=== PATIENT | male | born 1930 | race Caucasian/White ===

== ENCOUNTER 2017-02-01 15:46 | Emergency (ER) | payer MEDICARE, BC ==
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
[2017-02-01 17:58] VITALS: BP 130/91; PULSE 92; O2SAT 96
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
== END 2017-02-01 17:59 | disposition home or self-care (01) ==
LOC: ED 15:46
DX: M25.562 Pain in left knee (principal); V48.5XXA Car driver injured in noncollision transport accident in traffic accident, initial encounter; E78.00 Pure hypercholesterolemia, unspecified; I10 Essential (primary) hypertension; Z79.899 Other long term (current) drug therapy
CPT/HCPCS: 72170; 73564; 99283; L1830

== ENCOUNTER 2018-06-19 11:25 | Inpatient (IN) | payer MEDICARE, BC ==
[2018-06-19] MEDS ORDERED: Ventolin Hfa MDI IH PRN (16:07)
[2018-06-19] MEDS ORDERED: TYLENOL 325 MG PO PRN (16:07)
[2018-06-19] MEDS: Miralax Powder 17GM PACKET PO SCH (17:09)
[2018-06-19] MEDS: KEPPRA 500 MG PO SCH (21:46)
[2018-06-19] MEDS: ELIQUIS 2.5 MG TABLET PO SCH (21:46)
[2018-06-19] MEDS: Zocor 10MG PO SCH (21:47)
[2018-06-19] MEDS ORDERED: NON-FORMULARY ITEM (Simvastatin 40 Mg [Zocor 40 Mg] 40 MG) PO SCH (22:00)
[2018-06-19] MEDS ORDERED: NON-FORMULARY ITEM (Apixaban*** [Eliquis 5 Mg Tablet***] 5 MG) PO SCH (22:00)
[2018-06-20] MEDS: PROVENTIL COMMON CANISTER IH PRN ×2 (08:14→16:05)
[2018-06-20] MEDS: Miralax Powder 17GM PACKET PO SCH ×2 (09:45→17:00)
[2018-06-20] MEDS: Cardizem CD 240 MG PO SCH (09:46)
[2018-06-20] MEDS: ELIQUIS 2.5 MG TABLET PO SCH ×2 (09:46→21:41)
[2018-06-20] MEDS: Flomax 0.4 MG PO SCH (09:46)
[2018-06-20] MEDS: Protonix 40MG Tablet PO SCH (09:46)
[2018-06-20] MEDS: KEPPRA 500 MG PO SCH ×2 (09:46→21:41)
[2018-06-20] MEDS: Lanoxin 0.125MG TABLET PO SCH (09:47)
[2018-06-20] MEDS ORDERED: NON-FORMULARY ITEM (Omeprazole 20 Mg [Prilosec 20 Mg] 20 MG) PO SCH (10:00)
[2018-06-20] MEDS ORDERED: Aplisol ID SCH (10:00)
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
[2018-06-20] MEDS ORDERED: Dulcolax 10 MG SUPP PR PRN (17:40)
[2018-06-20] MEDS: Colace 100 MG PO PRN (17:52)
[2018-06-20] MEDS: Zocor 10MG PO SCH (21:41)
[2018-06-21] MEDS: ELIQUIS 2.5 MG TABLET PO SCH ×2 (10:21→21:49)
[2018-06-21] MEDS: KEPPRA 500 MG PO SCH ×2 (10:21→21:49)
[2018-06-21] MEDS: Lanoxin 0.125MG TABLET PO SCH (10:21)
[2018-06-21] MEDS: Flomax 0.4 MG PO SCH (10:21)
[2018-06-21] MEDS: Protonix 40MG Tablet PO SCH (10:21)
[2018-06-21] MEDS: Cardizem CD 240 MG PO SCH (10:22)
[2018-06-21] MEDS: Miralax Powder 17GM PACKET PO SCH ×2 (10:26→18:00)
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
[2018-06-21] MEDS: Zocor 10MG PO SCH (21:49)
[2018-06-22] MEDS ORDERED: CITROMA 296 ML PO ONE (08:46)
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
[2018-06-22] MEDS ORDERED: PROVENTIL 2.5 MG/3 ML NEB IH PRN (08:47)
[2018-06-22 09:00] LABS: BASOPHIL % 0.1 % (0.0-0.4); Basophil (Absolute #) 0.01 (0-0.4); Eosinophil % 0.8 % (0.00-5.0); Eosinophil (Absolute #) 0.07 (0-0.5); Granulocyte Absolute (ANC) 7.05 (1.4-6.9); Granulocytes % 78.6 % (36.0-66.0); Hematocrit 36.4 % (42-50); Hemoglobin 11.9 gm/dl (12.5-18.0); Lymphocyte (Absolute #) 0.95 (1.0-4.6); Lymphocytes % 10.6 % (24.0-44.0); Mean Cell Volume 96.6 fl (78-100); Mean Corpuscular Hgb Concent. 32.7 g/dl (32-36); Mean Platelet Volume 10.8 fl (6-9.5); Monocyte (Absolute #) 0.89 (0.0-1.3); Monocytes % 9.9 % (0.0-12.0); Red Blood Count 3.77 M/mm3 (4.1-5.6); Red Cell Distribution Width 14.4 % (11.5-14.0)
[2018-06-22 09:03] LABS: Mean Corpuscular Hemoglobin 31.5 pg (26-32)
[2018-06-22] MEDS: NORCO 5/325 MG PO PRN (09:33)
[2018-06-22] MEDS: Lanoxin 0.125MG TABLET PO SCH (09:34)
[2018-06-22] MEDS: Protonix 40MG Tablet PO SCH (09:34)
[2018-06-22] MEDS: Flomax 0.4 MG PO SCH (09:34)
[2018-06-22] MEDS: ELIQUIS 2.5 MG TABLET PO SCH ×2 (09:34→21:03)
[2018-06-22] MEDS: KEPPRA 500 MG PO SCH ×2 (09:34→21:03)
[2018-06-22] MEDS: Miralax Powder 17GM PACKET PO SCH ×2 (09:34→16:42)
[2018-06-22] MEDS: Cardizem CD 240 MG PO SCH (09:35)
[2018-06-22 09:47] LABS: ALBUMIN 2.8 g/dL (3.5-5.0); ALKALINE PHOSPHATASE 74 U/L (38-126); ANION GAP 9.7 MEQ/L (5-15); BLOOD UREA NITROGEN 9 mg/dL (9-20); CHLORIDE 102 mmol/L (98-107); Calcium 7.7 mg/dL (8.4-10.2); Carbon Dioxide 29 mmol/L (22-30); Creatinine 1 0.56 mg/dL (0.66-1.25); Glucose 220 mg/dL (74-106); Potassium 4.4 mmol/L (3.5-5.1); SGOT/AST 26 U/L (17-59); SGPT/ALT 34 U/L (0-50); SODIUM 136 mmol/L (137-145); Total Protein 5.2 g/dL (6.3-8.2)
[2018-06-22 09:48] LABS: Platelet Count 153 K/mm3 (150-450)
[2018-06-22] MEDS: Zocor 10MG PO SCH (21:03)
[2018-06-22] MEDS: CEPACOL SORE THROAT LOZENGE PO PRN (21:07)
[2018-06-23] MEDS: NORCO 5/325 MG PO PRN ×2 (03:53→10:17)
[2018-06-23] MEDS: Flomax 0.4 MG PO SCH (10:15)
[2018-06-23] MEDS: Cardizem CD 240 MG PO SCH (10:15)
[2018-06-23] MEDS: Protonix 40MG Tablet PO SCH (10:17)
[2018-06-23] MEDS: KEPPRA 500 MG PO SCH ×2 (10:17→22:00)
[2018-06-23] MEDS: ELIQUIS 2.5 MG TABLET PO SCH ×2 (10:17→22:00)
[2018-06-23] MEDS: Lanoxin 0.125MG TABLET PO SCH (10:18)
[2018-06-23] MEDS: Miralax Powder 17GM PACKET PO SCH ×2 (10:33→16:49)
[2018-06-23] MEDS: Zocor 10MG PO SCH (22:00)
[2018-06-24] MEDS: NORCO 5/325 MG PO PRN ×3 (03:13→21:07)
[2018-06-24] MEDS: Protonix 40MG Tablet PO SCH (09:50)
[2018-06-24] MEDS: ELIQUIS 2.5 MG TABLET PO SCH ×2 (09:50→21:03)
[2018-06-24] MEDS: Lanoxin 0.125MG TABLET PO SCH (09:50)
[2018-06-24] MEDS: Flomax 0.4 MG PO SCH (09:50)
[2018-06-24] MEDS: Miralax Powder 17GM PACKET PO SCH ×2 (09:50→16:50)
[2018-06-24] MEDS: KEPPRA 500 MG PO SCH ×2 (09:50→21:03)
[2018-06-24] MEDS: Cardizem CD 240 MG PO SCH (09:50)
[2018-06-24] MEDS: Colace 100 MG PO PRN (15:21)
[2018-06-24] MEDS: Zocor 10MG PO SCH (21:03)
[2018-06-24] MEDS: CEPACOL SORE THROAT LOZENGE PO PRN (21:06)
[2018-06-25] MEDS: Protonix 40MG Tablet PO SCH (09:35)
[2018-06-25] MEDS: Miralax Powder 17GM PACKET PO SCH ×2 (09:35→16:57)
[2018-06-25] MEDS: Flomax 0.4 MG PO SCH ×2 (09:35→09:37)
[2018-06-25] MEDS: Cardizem CD 240 MG PO SCH (09:36)
[2018-06-25] MEDS: Lanoxin 0.125MG TABLET PO SCH (09:36)
[2018-06-25] MEDS: ELIQUIS 2.5 MG TABLET PO SCH ×2 (09:36→21:02)
[2018-06-25] MEDS: KEPPRA 500 MG PO SCH ×2 (09:37→21:02)
[2018-06-25] MEDS: NORCO 5/325 MG PO PRN ×3 (09:44→23:43)
[2018-06-25] MEDS: Zocor 10MG PO SCH (21:02)
[2018-06-26] MEDS: Miralax Powder 17GM PACKET PO SCH ×2 (10:41→17:23)
[2018-06-26] MEDS: KEPPRA 500 MG PO SCH ×2 (10:42→21:17)
[2018-06-26] MEDS: Protonix 40MG Tablet PO SCH (10:44)
[2018-06-26] MEDS: Lanoxin 0.125MG TABLET PO SCH (10:44)
[2018-06-26] MEDS: ELIQUIS 2.5 MG TABLET PO SCH ×2 (10:46→21:17)
[2018-06-26] MEDS: Flomax 0.4 MG PO SCH (10:51)
[2018-06-26] MEDS: Cardizem CD 240 MG PO SCH (11:26)
[2018-06-26 14:59] LABS: RPR Screen Non Reactive (Non Reactive)
[2018-06-26] MEDS: NORCO 5/325 MG PO PRN (15:46)
[2018-06-26] MEDS: Zocor 10MG PO SCH (21:17)
[2018-06-27] MEDS: Miralax Powder 17GM PACKET PO SCH ×2 (08:53→16:54)
[2018-06-27] MEDS: Lanoxin 0.125MG TABLET PO SCH (08:55)
[2018-06-27] MEDS: ELIQUIS 2.5 MG TABLET PO SCH ×2 (08:56→21:12)
[2018-06-27] MEDS: Flomax 0.4 MG PO SCH (08:57)
[2018-06-27] MEDS: Cardizem CD 240 MG PO SCH (08:57)
[2018-06-27] MEDS: Protonix 40MG Tablet PO SCH (08:58)
[2018-06-27] MEDS: KEPPRA 500 MG PO SCH ×2 (08:59→21:12)
[2018-06-27] MEDS: NORCO 5/325 MG PO PRN ×2 (09:45→14:21)
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
[2018-06-27] MEDS: Zocor 10MG PO SCH (21:12)
[2018-06-28] MEDS: NORCO 5/325 MG PO PRN ×4 (01:14→20:07)
[2018-06-28] MEDS: Protonix 40MG Tablet PO SCH (07:55)
[2018-06-28] MEDS: Lanoxin 0.125MG TABLET PO SCH (07:55)
[2018-06-28] MEDS: Flomax 0.4 MG PO SCH (07:55)
[2018-06-28] MEDS: Cardizem CD 240 MG PO SCH (07:56)
[2018-06-28] MEDS: ELIQUIS 2.5 MG TABLET PO SCH ×2 (07:56→21:29)
[2018-06-28] MEDS: Miralax Powder 17GM PACKET PO SCH ×2 (08:02→16:47)
[2018-06-28] MEDS: KEPPRA 500 MG PO SCH ×2 (08:22→21:30)
[2018-06-28] MEDS: Zocor 10MG PO SCH (21:29)
[2018-06-29] MEDS: Miralax Powder 17GM PACKET PO SCH ×2 (08:30→17:40)
[2018-06-29] MEDS: NORCO 5/325 MG PO PRN ×3 (08:30→22:49)
[2018-06-29] MEDS: Lanoxin 0.125MG TABLET PO SCH (08:31)
[2018-06-29] MEDS: Cardizem CD 240 MG PO SCH (08:31)
[2018-06-29] MEDS: KEPPRA 500 MG PO SCH ×2 (08:31→22:48)
[2018-06-29] MEDS: Protonix 40MG Tablet PO SCH (08:31)
[2018-06-29] MEDS: ELIQUIS 2.5 MG TABLET PO SCH ×2 (08:32→22:49)
[2018-06-29] MEDS: Flomax 0.4 MG PO SCH (08:32)
[2018-06-29] MEDS: Zocor 10MG PO SCH (22:48)
[2018-06-30] MEDS: Cardizem CD 240 MG PO SCH (11:40)
[2018-06-30] MEDS: KEPPRA 500 MG PO SCH ×2 (11:40→21:52)
[2018-06-30] MEDS: ELIQUIS 2.5 MG TABLET PO SCH ×2 (11:40→21:52)
[2018-06-30] MEDS: Flomax 0.4 MG PO SCH (11:41)
[2018-06-30] MEDS: Protonix 40MG Tablet PO SCH (11:41)
[2018-06-30] MEDS: Miralax Powder 17GM PACKET PO SCH ×2 (11:42→17:43)
[2018-06-30] MEDS: Lanoxin 0.125MG TABLET PO SCH (11:58)
[2018-06-30] MEDS: Zocor 10MG PO SCH (21:52)
[2018-07-01] MEDS: NORCO 5/325 MG PO PRN (03:11)
[2018-07-01] MEDS: Miralax Powder 17GM PACKET PO SCH ×2 (09:00→17:10)
[2018-07-01] MEDS: KEPPRA 500 MG PO SCH ×2 (09:49→21:25)
[2018-07-01] MEDS: Lanoxin 0.125MG TABLET PO SCH (09:49)
[2018-07-01] MEDS: Protonix 40MG Tablet PO SCH (09:49)
[2018-07-01] MEDS: Flomax 0.4 MG PO SCH (09:50)
[2018-07-01] MEDS: Cardizem CD 240 MG PO SCH (09:50)
[2018-07-01] MEDS: ELIQUIS 2.5 MG TABLET PO SCH ×2 (09:50→21:25)
[2018-07-01] MEDS ORDERED: Aplisol ID SCH (10:00)
[2018-07-01 19:30] VITALS: O2SAT 95
[2018-07-01] MEDS: Zocor 10MG PO SCH (21:25)
[2018-07-02] MEDS: NORCO 5/325 MG PO PRN (02:21)
[2018-07-02 07:55] VITALS: BP 157/84; PULSE 94
[2018-07-02] MEDS ORDERED: NORCO 5/325 MG PO PRN (09:16)
[2018-07-02] MEDS: Cardizem CD 240 MG PO SCH (10:13)
[2018-07-02] MEDS: ELIQUIS 2.5 MG TABLET PO SCH (10:13)
[2018-07-02] MEDS: Miralax Powder 17GM PACKET PO SCH (10:13)
[2018-07-02] MEDS: Lanoxin 0.125MG TABLET PO SCH (10:14)
[2018-07-02] MEDS: Protonix 40MG Tablet PO SCH (10:14)
[2018-07-02] MEDS: Flomax 0.4 MG PO SCH (10:14)
[2018-07-02] MEDS: KEPPRA 500 MG PO SCH (10:14)
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
== END 2018-07-02 13:15 | disposition home or self-care (01) | DRG 87 ==
LOC: MED SURG 15:39
PROVIDERS: ADMIT Family Medicine; ATTEND Family Medicine
DX: S06.9X1A Unspecified intracranial injury with loss of consciousness of 30 minutes or less, initial encounter (principal); V47.0XXA Car driver injured in collision with fixed or stationary object in nontraffic accident, initial encounter; R56.9 Unspecified convulsions; R91.1 Solitary pulmonary nodule; K59.00 Constipation, unspecified; I48.91 Unspecified atrial fibrillation; Z79.01 Long term (current) use of anticoagulants; I10 Essential (primary) hypertension; I25.10 Atherosclerotic heart disease of native coronary artery without angina pectoris; Z79.899 Other long term (current) drug therapy; I25.2 Old myocardial infarction; M19.90 Unspecified osteoarthritis, unspecified site; K21.9 Gastro-esophageal reflux disease without esophagitis; Z85.828 Personal history of other malignant neoplasm of skin; Z72.0 Tobacco use; E78.5 Hyperlipidemia, unspecified; N40.0 Benign prostatic hyperplasia without lower urinary tract symptoms; J44.9 Chronic obstructive pulmonary disease, unspecified
CPT/HCPCS: 36415; 80053; 80162; 82607; 82746; 85025; 86592; 86593; 86780; 90686; 94640; 94760; 97110-GP; A9270-GY

== ENCOUNTER 2018-07-11 10:11 | Observation (INO) | payer MEDICARE, BC ==
[2018-07-11 11:07] LABS: BASOPHIL % 0.1 % (0.0-0.4); Basophil (Absolute #) 0.01 (0-0.4); Eosinophil % 1.1 % (0.00-5.0); Eosinophil (Absolute #) 0.09 (0-0.5); Granulocyte Absolute (ANC) 5.41 (1.4-6.9); Granulocytes % 69.1 % (36.0-66.0); Hematocrit 41.2 % (42-50); Hemoglobin 13.3 gm/dl (12.5-18.0); Lymphocytes % 19.2 % (24.0-44.0); Mean Cell Volume 96.3 fl (78-100); Mean Corpuscular Hemoglobin 31.1 pg (26-32); Mean Corpuscular Hgb Concent. 32.3 g/dl (32-36); Mean Platelet Volume 9.6 fl (6-9.5); Monocyte (Absolute #) 0.82 (0.0-1.3); Monocytes % 10.5 % (0.0-12.0); Platelet Count 271 K/mm3 (150-450); Red Blood Count 4.28 M/mm3 (4.1-5.6); Red Cell Distribution Width 14.8 % (11.5-14.0); White Blood Count 7.8 K/mm3 (4.0-10.5)
--- NOTE | 2018-07-11 11:22 | XRAY ---
Indication: Diarrhea and weakness. Comparison: November 22, 2016. PA/lateral chest remains clear with incidental right base calcified granuloma. Heart and mediastinal structures within normal limits again with prominent epicardiac fat. Bony thorax intact again with minimal degenerative changes. Impression: Stable nonacute chest with chronic features.
[2018-07-11 11:23] LABS: ALBUMIN 3.7 g/dL (3.5-5.0); ALKALINE PHOSPHATASE 125 U/L (38-126); ANION GAP 14.1 MEQ/L (5-15); BLOOD UREA NITROGEN 22 mg/dL (9-20); CHLORIDE 102 mmol/L (98-107); Calcium 8.7 mg/dL (8.4-10.2); Carbon Dioxide 29 mmol/L (22-30); Creatinine 1 0.88 mg/dL (0.66-1.25); Glucose 212 mg/dL (74-106); Potassium 4.5 mmol/L (3.5-5.1); SGOT/AST 35 U/L (17-59); SGPT/ALT 38 U/L (0-50); SODIUM 141 mmol/L (137-145); Total Protein 6.6 g/dL (6.3-8.2)
[2018-07-11] MEDS ORDERED: CEPACOL SORE THROAT LOZENGE PO PRN (12:07)
[2018-07-11] MEDS ORDERED: Ventolin Hfa MDI IH PRN (12:07)
[2018-07-11] MEDS: Sodium Chloride 0.9% 1000 ML 1,000 ML IV SCH (12:10)
[2018-07-11] MEDS ORDERED: PROVENTIL COMMON CANISTER IH PRN (12:15)
[2018-07-11] MEDS: TYLENOL 325 MG PO PRN (17:22)
[2018-07-11] MEDS: Miralax Powder 17GM PACKET PO SCH (17:52)
[2018-07-11] MEDS: KEPPRA 500 MG PO SCH (21:56)
[2018-07-11] MEDS: ELIQUIS 2.5 MG TABLET PO SCH (21:56)
[2018-07-11] MEDS: ZOCOR 20MG PO SCH (21:56)
[2018-07-11] MEDS ORDERED: NON-FORMULARY ITEM (Simvastatin 40 Mg [Zocor 40 Mg] 40 MG) PO SCH (22:00)
[2018-07-11] MEDS ORDERED: NON-FORMULARY ITEM (Apixaban*** [Eliquis 5 Mg Tablet***] 5 MG) PO SCH (22:00)
[2018-07-12] MEDS: Sodium Chloride 0.9% 1000 ML 1,000 ML IV SCH ×2 (00:38→15:41)
[2018-07-12] MEDS: TYLENOL 325 MG PO PRN ×2 (00:38→19:17)
[2018-07-12 02:58] LABS: Appearance CLEAR (CLEAR); Bilirubin NEGATIVE (NEGATIVE); Blood NEGATIVE Ery/ul (0-5); Glucose NEGATIVE (NEGATIVE); Ketones NEGATIVE (NEGATIVE); Leukocyte Esterase NEGATIVE (NEGATIVE); Nitrite NEGATIVE (NEGATIVE); Protein,Urine Dip NEGATIVE (Negative); Specific Gravity 1.025 (1.005-1.025); Urobilinogen NORMAL mg/dL (0-1)
[2018-07-12] MEDS ORDERED: IMODIUM 2 MG PO PRN (08:50)
--- NOTE | 2018-07-12 08:51 | PCM.HP ---
History of Present Illness - Chief Complaint Chief Complaint: Diarrhea, weakness History of Present Illness: is a 88 year old male who was admitted directly to the hospital yesterday due to diarrhea and weakness. He is a poor historian, but tells me that he had 3 days of diarrhea. C diff negative on 07/11/18. - Review of Systems Constitutional: No Fever Abdominal/Gastrointestinal: Diarrhea, No Abdominal Pain Psychological: Memory Loss All Other Systems: Unable due to dementia Medications & Allergies Home Medications: Home Medication List Omeprazole 20 MG [Prilosec 20 mg] 20 mg PO DAILY 12/29/12 [History Confirmed ] Simvastatin 40 mg [Zocor 40 mg] 40 mg PO HS 12/29/12 [History Confirmed 07/11/18 ] Tamsulosin HCl 0.4 mg [Flomax 0.4 MG] 0.4 mg PO DAILY 12/29/12 [History Confirmed 07/11/18] Albuterol Sulfate [Proair Hfa] 2 puff IH Q4H PRN PRN #1 hfa.aer.ad 01/10/16 [Rx Confirmed 07/11/18] Apixaban [Eliquis 5 mg Tablet] 5 mg PO BID #60 tablet 01/10/16 [Rx Confirmed 07/11/18] Acetaminophen 325 mg [Tylenol 325 mg] 650 mg PO Q6HPRN PRN 06/19/18 [ History Confirmed 07/11/18] Benzocaine/Menthol [Cepacol Sore Throat Lozenge] 1 tab PO Q2H/PRN PRN [History Confirmed 07/11/18] Digoxin 0.125 mg Tablet [Lanoxin 0.125MG TABLET] 125 mcg PO DAILY [History Confirmed 07/11/18] Diltiazem HCl 240 mg [Cardizem CD 240 MG] 240 mg PO DAILY 06/19/18 [ History Confirmed 07/11/18] Polyethylene Glycol 3350 [Clearlax] 17 gm PO 0900,1700 06/19/18 [History Confirmed 07/11/18] Levetiracetam [Keppra 500 mg ] 500 mg PO BID #60 tablet 07/02/18 [Rx Confirmed 07/11/18] Allergies/Adverse Reactions: Allergies Allergy/AdvReac Type Severity Reaction Status Date / Time No Known Drug Allergies Allergy Verified 06/19/18 15:42 - Past Medical History Past Medical History: Yes Neurological History: No Pertinent History ENT History: No Pertinent History Cardiac History: High Cholesterol, Hypertension, Myocardial Infarction (IA) Respiratory History: Bronchitis, Pneumonia Endocrine Medical History: No Pertinent History Musculoskelatal History: Arthritis GI Medical History: GERD, Hernia, Other History: No Pertinent History Pyscho-Social History: No Pertinent History Male Reproductive Disorders: Prostate Problems Comment: left inguinal hernia, gallstones, skin cancer - Past Surgical History Past Surgical History: Yes Neuro Surgical History: No Pertinent History Cardiac History: Cardiac Catheterization Respiratory Surgery: No Pertinent History GI Surgical History: Hernia Repair Genitourinary Surgical Hx: No Pertinent History Musculskeletal Surgical Hx: No Pertinent History Male Surgical History: No Pertinent History Other Surgical History: left inguinal hernia repair - Social History Smoking Status: Never smoker Exposure to second hand smoke: No Alcohol: None Drug Use: none - Physical Exam Vital Signs: Vital Signs - 24 hr Temp Pulse Resp BP Pulse Ox 07/12/18 08:00 98.4 F 96 H 20 131/69 97 07/12/18 04:00 98.4 F 83 18 118/60 95 07/12/18 00:01 98.1 F 53 L 18 122/63 95 07/11/18 21:15 15 07/11/18 20:00 97.8 F 49 L 20 118/61 96 07/11/18 16:03 97.6 F 64 18 100/56 99 07/11/18 15:00 71 16 99 07/11/18 10:34 97.8 F 77 20 96/55 96 General Appearance: no apparent distress, alert Neurologic Exam: cooperative, disoriented (year is "1999") Ears, Nose, Throat Exam: moist mucous membranes Respiratory Exam: normal breath sounds, lungs clear, No crackles/rales, No rhonchi, No wheezing Cardiovascular Exam: regular rate/rhythm, normal heart sounds, No murmur Gastrointestinal/Abdomen Exam: soft, normal bowel sounds, No tenderness, No distention, No mass, No guarding, No rebound Extremity Exam: normal inspection, No pedal edema, No swelling Skin Exam: normal color, warm, dry, No rash Results - Labs Lab/Micro Results: Lab Results-Last 24 Hours 07/11/18 07/11/18 07/11/18 Range/Units 10:45 10:50 10:50 WBC 7.8 (4.0-10.5) K/mm3 RBC 4.28 (4.1-5.6) M/mm3 Hgb 13.3 (12.5-18.0) gm/dl Hct 41.2 L (42-50) % MCV 96.3 (78-100) fl MCH 31.1 (26-32) pg MCHC 32.3 (32-36) g/dl RDW 14.8 H (11.5-14.0) % Plt Count 271 (150-450) K/mm3 MPV 9.6 H (6-9.5) fl Gran % 69.1 H (36.0-66.0) % Eos # (Auto) 0.09 (0-0.5) Absolute Lymphs (auto) 1.50 (1.0-4.6) Absolute Monos (auto) 0.82 (0.0-1.3) Lymphocytes % 19.2 L (24.0-44.0) % Monocytes % 10.5 (0.0-12.0) % Eosinophils % 1.1 (0.00-5.0) % Basophils % 0.1 (0.0-0.4) % Absolute Granulocytes 5.41 (1.4-6.9) Basophils # 0.01 (0-0.4) Sodium 141 (137-145) mmol/L Potassium 4.5 (3.5-5.1) mmol/L Chloride 102 (98-107) mmol/L Carbon Dioxide 29 (22-30) mmol/L Anion Gap 14.1 (5-15) MEQ/L BUN 22 H (9-20) mg/dL Creatinine 0.88 (0.66-1.25) mg/dL Estimated GFR > 60.0 ML/MIN Glucose 212 H (74-106) mg/dL Lactic Acid 1.6 (0.4-2.0) Calcium 8.7 (8.4-10.2) mg/dL Total Bilirubin 0.70 (0.2-1.3) mg/dL AST 35 (17-59) U/L ALT 38 (0-50) U/L Alkaline Phosphatase 125 (38-126) U/L Serum Total Protein 6.6 (6.3-8.2) g/dL Albumin 3.7 (3.5-5.0) g/dL Ur Collection Type Urine Color (YELLOW) Urine Appearance (CLEAR) Urine pH (5-6) Ur Specific [place] (1.005-1.025) Urine Protein (Negative) Urine Ketones (NEGATIVE) Urine Blood (0-5) Hamlet/ul Urine Nitrite (NEGATIVE) Urine Bilirubin (NEGATIVE) Urine Urobilinogen (0-1) mg/dL Ur Leukocyte Esterase (NEGATIVE) Urine Glucose (NEGATIVE) mg/dL 07/12/18 Range/Units 01:45 WBC (4.0-10.5) K/mm3 RBC (4.1-5.6) M/mm3 Hgb (12.5-18.0) gm/dl Hct (42-50) % MCV (78-100) fl MCH (26-32) pg MCHC (32-36) g/dl RDW (11.5-14.0) % Plt Count (150-450) K/mm3 MPV (6-9.5) fl Gran % (36.0-66.0) % Eos # (Auto) (0-0.5) Absolute Lymphs (auto) (1.0-4.6) Absolute Monos (auto) (0.0-1.3) Lymphocytes % (24.0-44.0) % Monocytes % (0.0-12.0) % Eosinophils % (0.00-5.0) % Basophils % (0.0-0.4) % Absolute Granulocytes (1.4-6.9) Basophils # (0-0.4) Sodium (137-145) mmol/L Potassium (3.5-5.1) mmol/L Chloride (98-107) mmol/L Carbon Dioxide (22-30) mmol/L Anion Gap (5-15) MEQ/L BUN (9-20) mg/dL Creatinine (0.66-1.25) mg/dL Estimated GFR ML/MIN Glucose (74-106) mg/dL Lactic Acid (0.4-2.0) Calcium (8.4-10.2) mg/dL Total Bilirubin (0.2-1.3) mg/dL AST (17-59) U/L ALT (0-50) U/L Alkaline Phosphatase (38-126) U/L Serum Total Protein (6.3-8.2) g/dL Albumin (3.5-5.0) g/dL Ur Collection Type CLEAN CATCH Urine Color DARK YELLOW (YELLOW) Urine Appearance CLEAR (CLEAR) Urine pH 5.0 (5-6) Ur Specific [place] 1.025 (1.005-1.025) Urine Protein NEGATIVE (Negative) Urine Ketones NEGATIVE (NEGATIVE) Urine Blood NEGATIVE (0-5) Hamlet/ul Urine Nitrite NEGATIVE (NEGATIVE) Urine Bilirubin NEGATIVE (NEGATIVE) Urine Urobilinogen NORMAL (0-1) mg/dL Ur Leukocyte Esterase NEGATIVE (NEGATIVE) Urine Glucose NEGATIVE (NEGATIVE) mg/dL - Radiology Impressions Radiology Exams & Impressions: Radiology Procedures Category Date Time Status ABDOMEN 2 VIEW Urgent Exams 07/12/18 Ordered CHEST 2 VIEWS (PA AND LAT) Routine Exams 07/11/18 11:00 Completed - Other Procedures and Tests Respiratory Therapy 07/11/18 16:06 Respiratory Therapy Assessment DAILY Assessment/Plan (1) Diarrhea Current Visit: Yes Status: Acute Assessment & Plan: C. diff recently negative (07/11/18) - will try immodium prn and increase diet to bland. Go ahead and check abd xr. Code(s): R19.7 - DIARRHEA, UNSPECIFIED (2) Weakness Current Visit: Yes Status: Acute Assessment & Plan: PT to eval/tx. could be related to the diarrhea. Code(s): R53.1 - WEAKNESS (3) Muscular deconditioning Current Visit: Yes Status: Acute Assessment & Plan: recent hospital admisison. Will discuss with family. Could benefit from more rehab. Code(s): R29.898 - OTH SYMPTOMS AND SIGNS INVOLVING THE MUSCULOSKELETAL SYSTEM (4) COPD (chronic obstructive pulmonary disease) Current Visit: Yes Status: Acute Qualifiers: COPD type: unspecified COPD Qualified Code(s): J44.9 - Chronic obstructive pulmonary disease, unspecified Assessment & Plan: stable (5) Seizure Current Visit: No Status: Acute Assessment & Plan: on keppra. Code(s): R56.9 - UNSPECIFIED CONVULSIONS
[2018-07-12] MEDS: Miralax Powder 17GM PACKET PO SCH ×2 (09:07→18:14)
[2018-07-12] MEDS: ELIQUIS 2.5 MG TABLET PO SCH ×2 (09:22→21:31)
[2018-07-12] MEDS: KEPPRA 500 MG PO SCH ×2 (09:22→21:32)
[2018-07-12] MEDS: Lanoxin 0.125MG TABLET PO SCH (09:22)
[2018-07-12] MEDS: Flomax 0.4 MG PO SCH (09:22)
[2018-07-12] MEDS: Cardizem CD 240 MG PO SCH (09:22)
--- NOTE | 2018-07-12 09:32 | XRAY ---
Indication: Abdominal pain and diarrhea. Comparison: None 2 views of the abdomen nonacute and nonobstructed. Solid organs unremarkable. Osseous structures intact with mild/moderate multilevel degenerative spondylosis and left innominate bone island.
[2018-07-12] MEDS ORDERED: NON-FORMULARY ITEM (Omeprazole 20 Mg [Prilosec 20 Mg] 20 MG) PO SCH (10:00)
[2018-07-12] MEDS: ZOCOR 20MG PO SCH (21:33)
[2018-07-12] MEDS ORDERED: Protonix 40MG Tablet PO SCH (22:00)
[2018-07-13] MEDS: TYLENOL 325 MG PO PRN (03:38)
[2018-07-13] MEDS: Sodium Chloride 0.9% 1000 ML 1,000 ML IV SCH (03:40)
[2018-07-13 05:47] LABS: BASOPHIL % 0.2 % (0.0-0.4); Basophil (Absolute #) 0.01 (0-0.4); Eosinophil % 1.4 % (0.00-5.0); Eosinophil (Absolute #) 0.08 (0-0.5); Granulocyte Absolute (ANC) 3.67 (1.4-6.9); Granulocytes % 62.3 % (36.0-66.0); Hematocrit 36.2 % (42-50); Hemoglobin 11.9 gm/dl (12.5-18.0); Lymphocyte (Absolute #) 1.45 (1.0-4.6); Lymphocytes % 24.6 % (24.0-44.0); Mean Cell Volume 94.8 fl (78-100); Mean Corpuscular Hgb Concent. 32.9 g/dl (32-36); Mean Platelet Volume 9.2 fl (6-9.5); Monocyte (Absolute #) 0.68 (0.0-1.3); Monocytes % 11.5 % (0.0-12.0); Platelet Count 203 K/mm3 (150-450); Red Blood Count 3.82 M/mm3 (4.1-5.6); Red Cell Distribution Width 14.4 % (11.5-14.0); White Blood Count 5.9 K/mm3 (4.0-10.5)
[2018-07-13 06:08] LABS: ANION GAP 10.1 MEQ/L (5-15); BLOOD UREA NITROGEN 10 mg/dL (9-20); CHLORIDE 106 mmol/L (98-107); Carbon Dioxide 26 mmol/L (22-30); Creatinine 1 0.64 mg/dL (0.66-1.25); Glucose 133 mg/dL (74-106); Potassium 3.9 mmol/L (3.5-5.1); SODIUM 138 mmol/L (137-145)
[2018-07-13 06:11] LABS: Mean Corpuscular Hemoglobin 31.1 pg (26-32)
[2018-07-13 07:09] VITALS: O2SAT 96
--- NOTE | 2018-07-13 08:53 | PCM.DS ---
Discharge Summary Date of Admission: 07/11/18 10:11 Admitting Physician: ISABEL VACA Primary Care Provider: ISABEL VACA Allergies Allergies No Known Drug Allergies Allergy (Verified 06/19/18 15:42) Hospital Summary - Hospital Course Hospital Course: Pt admitted from home with diarrhea and weakness. No diarrhea since 2 d ago. Appetite is increased. He says he was up yesterday walking with therapy. He is feeling better today. Will be discharged to [facility] today for rehab. - Vitals & Intake/Output Vital Signs: Vital Signs Temperature 97.8 F 07/13/18 07:08 Pulse Rate 68 07/13/18 07:08 Respiratory Rate 18 07/13/18 07:08 Blood Pressure 142/78 07/13/18 07:08 O2 Sat by Pulse Oximetry 96 07/13/18 07:08 Intake & Output: Intake & Output 07/10/18 07/11/18 07/12/18 07/13/18 11:59 11:59 11:59 11:59 Intake Total 2342 2856 Output Total 200 700 Balance 2142 2156 Weight 83.5 kg 85.4 kg 85.6 kg - Lab Result Diagrams: 07/13/18 05:25 07/13/18 05:25 Lab Results-Last 24 Hrs: Lab Results-Last 24 Hours 07/13/18 07/13/18 Range/Units 05:25 05:25 WBC 5.9 (4.0-10.5) K/mm3 RBC 3.82 L (4.1-5.6) M/mm3 Hgb 11.9 L (12.5-18.0) gm/dl Hct 36.2 L (42-50) % MCV 94.8 (78-100) fl MCH 31.1 (26-32) pg MCHC 32.9 (32-36) g/dl RDW 14.4 H (11.5-14.0) % Plt Count 203 (150-450) K/mm3 MPV 9.2 (6-9.5) fl Gran % 62.3 (36.0-66.0) % Eos # (Auto) 0.08 (0-0.5) Absolute Lymphs (auto) 1.45 (1.0-4.6) Absolute Monos (auto) 0.68 (0.0-1.3) Lymphocytes % 24.6 (24.0-44.0) % Monocytes % 11.5 (0.0-12.0) % Eosinophils % 1.4 (0.00-5.0) % Basophils % 0.2 (0.0-0.4) % Absolute Granulocytes 3.67 (1.4-6.9) Basophils # 0.01 (0-0.4) Sodium 138 (137-145) mmol/L Potassium 3.9 (3.5-5.1) mmol/L Chloride 106 (98-107) mmol/L Carbon Dioxide 26 (22-30) mmol/L Anion Gap 10.1 (5-15) MEQ/L BUN 10 (9-20) mg/dL Creatinine 0.64 L (0.66-1.25) mg/dL Estimated GFR > 60.0 ML/MIN Glucose 133 H (74-106) mg/dL Calcium 8.0 L (8.4-10.2) mg/dL - Radiology Exams Ordered Rad Exams-Entire Visit: Radiology Procedures Category Date Time Status ABDOMEN 2 VIEW Urgent Exams 07/12/18 09:16 Completed CHEST 2 VIEWS (PA AND LAT) Routine Exams 07/11/18 11:00 Completed - Procedures and Test Procedures and Tests throughout Hospitalization: Therapy Orders & Screens 07/11/18 16:05 Respiratory MDI UD Comment: ALBUTEROL Q4PRN Diagnosis: Diarrhea, weakness 07/11/18 16:06 Respiratory Therapy Assessment DAILY Comment: Diagnosis: Diarrhea, weakness 07/12/18 08:49 PT Eval & Treat (MD Order) ROUTINE Reason for Eval:: weakness Diagnosis: Diarrhea, weakness Discharge Exam General Appearance: no apparent distress, alert Neurologic Exam: cooperative Skin Exam: normal color, warm, dry, No rash Respiratory Exam: normal breath sounds, lungs clear, No crackles/rales, No rhonchi, No wheezing Cardiovascular Exam: other (regularly irregular), No murmur Gastrointestinal/Abdomen Exam: soft, normal bowel sounds, No tenderness Final Diagnosis/Problem List - Final Discharge Diagnosis/Problem (1) Diarrhea Current Visit: Yes Status: Resolved Assessment & Plan: resolved (2) Weakness Current Visit: Yes Status: Acute Assessment & Plan: to LTCF for therapy (3) Muscular deconditioning Current Visit: Yes Status: Acute (4) COPD (chronic obstructive pulmonary disease) Current Visit: Yes Status: Chronic (5) Seizure Current Visit: No Status: Chronic - Discharge Disposition: Home, Self-Care Condition: Good Prescriptions: New Loperamide HCl 2 mg [Imodium 2 mg] 2 mg PO PRN PRN #120 capsule MDD 8 PRN Reason: Diarrhea Continue Tamsulosin HCl 0.4 mg [Flomax 0.4 MG] 0.4 mg PO DAILY Omeprazole 20 MG [Prilosec 20 mg] 20 mg PO DAILY Simvastatin 40 mg [Zocor 40 mg] 40 mg PO HS Apixaban [Eliquis 5 mg Tablet] 5 mg PO BID #60 tablet Albuterol Sulfate [Proair Hfa] 2 puff IH Q4H PRN PRN #1 hfa.aer.ad PRN Reason: wheezing Diltiazem HCl 240 mg [Cardizem CD 240 MG] 240 mg PO DAILY Digoxin 0.125 mg Tablet [Lanoxin 0.125MG TABLET] 125 mcg PO DAILY Benzocaine/Menthol [Cepacol Sore Throat Lozenge] 1 tab PO Q2H/PRN PRN PRN Reason: SORE THROAT Acetaminophen 325 mg [Tylenol 325 mg] 650 mg PO Q6HPRN PRN PRN Reason: Pain Polyethylene Glycol 3350 [Clearlax] 17 gm PO 0900,1700 Levetiracetam [Keppra 500 mg ] 500 mg PO BID #60 tablet Additional Instructions: Fax DC instructions to [facility] at [phone] Follow up with: ISABEL VACA [Primary Care Provider] - 1 Week
[2018-07-13] MEDS: Miralax Powder 17GM PACKET PO SCH (09:33)
[2018-07-13] MEDS: Cardizem CD 240 MG PO SCH (09:40)
[2018-07-13] MEDS: ELIQUIS 2.5 MG TABLET PO SCH (09:40)
[2018-07-13] MEDS: Lanoxin 0.125MG TABLET PO SCH (09:40)
[2018-07-13] MEDS: Flomax 0.4 MG PO SCH (09:40)
[2018-07-13] MEDS: KEPPRA 500 MG PO SCH (09:40)
[2018-07-13 10:31] VITALS: BP 148/76; PULSE 70
== END 2018-07-13 10:50 ==
LOC: MED SURG 10:11
PROVIDERS: ADMIT Family Medicine; ATTEND Family Medicine
DX: R53.81 Other malaise (principal); R19.7 Diarrhea, unspecified; J44.9 Chronic obstructive pulmonary disease, unspecified; R56.9 Unspecified convulsions; F03.90 Unspecified dementia, unspecified severity, without behavioral disturbance, psychotic disturbance, mood disturbance, and anxiety; I10 Essential (primary) hypertension; I25.2 Old myocardial infarction; M19.90 Unspecified osteoarthritis, unspecified site; K21.9 Gastro-esophageal reflux disease without esophagitis; Z79.01 Long term (current) use of anticoagulants; R29.898 Other symptoms and signs involving the musculoskeletal system; Z85.828 Personal history of other malignant neoplasm of skin; R53.1 Weakness
CPT/HCPCS: 36415; 71046; 74021; 80048; 80053; 81002; 83605; 85025; 87086; 87493; 93268; 94760; 97110-GP; A9270-GY; G0378

== ENCOUNTER 2019-05-16 11:12 | Inpatient (IN) | payer MEDICARE, BC ==
[2019-05-16 12:00] LABS: BASOPHIL % 0.2 % (0.0-0.4); Basophil (Absolute #) 0.01 (0-0.4); Eosinophil (Absolute #) 0.13 (0-0.5); Granulocyte Absolute (ANC) 4.57 (1.4-6.9); Granulocytes % 68.8 % (36.0-66.0); Hematocrit 40.1 % (42-50); Hemoglobin 13.2 gm/dl (12.5-18.0); Lymphocyte (Absolute #) 1.23 (1.0-4.6); Lymphocytes % 18.5 % (24.0-44.0); Mean Cell Volume 97.3 fl (78-100); Mean Corpuscular Hgb Concent. 32.9 g/dl (32-36); Mean Platelet Volume 9.2 fl (6-9.5); Monocytes % 10.5 % (0.0-12.0); Platelet Count 257 K/mm3 (150-450); Red Blood Count 4.12 M/mm3 (4.1-5.6); Red Cell Distribution Width 14.1 % (11.5-14.0); White Blood Count 6.6 K/mm3 (4.0-10.5)
[2019-05-16 12:11] LABS: ALBUMIN 3.7 g/dL (3.5-5.0); ALKALINE PHOSPHATASE 208 U/L (38-126); ANION GAP 10.9 MEQ/L (5-15); BLOOD UREA NITROGEN 14 mg/dL (9-20); CHLORIDE 101 mmol/L (98-107); Calcium 8.8 mg/dL (8.4-10.2); Carbon Dioxide 30 mmol/L (22-30); Creatinine 1 0.53 mg/dL (0.66-1.25); Glucose 190 mg/dL (74-106); Potassium 4.3 mmol/L (3.5-5.1); SGOT/AST 19 U/L (17-59); SGPT/ALT 16 U/L (0-50); SODIUM 138 mmol/L (137-145); Total Protein 6.6 g/dL (6.3-8.2)
[2019-05-16] MEDS ORDERED: Sodium Chloride 0.9% 10 ML FLUSH Syringe IV PRN (13:00)
[2019-05-16] MEDS: ROCEPHIN 1 Gm-D5w 50 ml Bag** 1 G/50 ML IVPB IV SCH (14:03)
[2019-05-16] MEDS: Sodium Chloride 0.9% 10 ML FLUSH Syringe IV SCH ×2 (17:48→21:57)
[2019-05-16] MEDS: COREG 12.5 MG PO SCH (21:51)
[2019-05-16] MEDS: ELIQUIS 2.5 MG TABLET PO SCH (21:51)
[2019-05-16] MEDS: Keppra 250 MG PO SCH (21:51)
[2019-05-16] MEDS: ZOCOR 20MG PO SCH (21:51)
[2019-05-16] MEDS: Flomax 0.4 MG PO SCH (21:51)
[2019-05-16] MEDS ORDERED: NON-FORMULARY ITEM (Simvastatin 40 Mg [Zocor 40 Mg] 40 MG) PO SCH (22:00)
[2019-05-16] MEDS ORDERED: NON-FORMULARY ITEM (Apixaban*** [Eliquis 5 Mg Tablet***] 5 MG) PO SCH (22:00)
--- NOTE | 2019-05-17 08:02 | PCM.HP.ADD ---
Addendum to History & Physical - History & Physical Addendum Addendum to History & Physical: This certifies that the History & Physical in the electronic chart reflects the current health status of the patient. If there are changes in the H&P these changes/exceptions are listed as follows.
[2019-05-17] MEDS: Miralax Powder 17GM PACKET PO SCH (09:11)
[2019-05-17] MEDS: Protonix 40MG Tablet PO SCH (09:12)
[2019-05-17] MEDS: Keppra 250 MG PO SCH ×2 (09:12→21:38)
[2019-05-17] MEDS: Cardizem CD 120 MG PO SCH (09:12)
[2019-05-17] MEDS: COREG 12.5 MG PO SCH ×2 (09:12→21:37)
[2019-05-17] MEDS: ELIQUIS 2.5 MG TABLET PO SCH ×2 (09:12→21:38)
[2019-05-17] MEDS: ROCEPHIN 1 Gm-D5w 50 ml Bag** 1 G/50 ML IVPB IV SCH (09:13)
[2019-05-17] MEDS: Proscar 5 MG PO SCH (09:14)
[2019-05-17] MEDS ORDERED: NON-FORMULARY ITEM (Omeprazole 20 Mg [Prilosec 20 Mg] 20 MG) PO SCH (10:00)
[2019-05-17] MEDS: ZOCOR 20MG PO SCH (21:38)
[2019-05-17] MEDS: Flomax 0.4 MG PO SCH (21:38)
[2019-05-17] MEDS: TYLENOL 325 MG PO PRN (21:45)
[2019-05-17] MEDS: Sodium Chloride 0.9% 10 ML FLUSH Syringe IV SCH (21:48)
[2019-05-18] MEDS: Sodium Chloride 0.9% 10 ML FLUSH Syringe IV SCH ×3 (04:54→21:07)
[2019-05-18] MEDS: ROCEPHIN 1 Gm-D5w 50 ml Bag** 1 G/50 ML IVPB IV SCH (10:00)
[2019-05-18] MEDS: Miralax Powder 17GM PACKET PO SCH ×2 (10:01→21:36)
[2019-05-18] MEDS: Cardizem CD 120 MG PO SCH (10:01)
[2019-05-18] MEDS: Keppra 250 MG PO SCH ×2 (10:02→20:56)
[2019-05-18] MEDS: ELIQUIS 2.5 MG TABLET PO SCH ×2 (10:02→20:56)
[2019-05-18] MEDS: Protonix 40MG Tablet PO SCH (10:02)
[2019-05-18] MEDS: COREG 12.5 MG PO SCH ×2 (10:03→20:56)
[2019-05-18] MEDS: Proscar 5 MG PO SCH (10:04)
[2019-05-18] MEDS: TYLENOL 325 MG PO PRN ×3 (11:10→21:04)
[2019-05-18] MEDS ORDERED: PHARMACY DOSING REQUEST MC ONE (11:24)
--- NOTE | 2019-05-18 11:51 | PCM.NOTE ---
Date and Time: 05/18/19 1148 Subjective Assessment: doing ok - Review of Systems Constitutional: No Fever, No Chills Eyes: No Symptoms Ears, Nose, & Throat: No Symptoms Respiratory: No Cough, No Short Of Breath Cardiac: No Chest Pain, No Edema, No Syncope Abdominal/Gastrointestinal: No Abdominal Pain, No Nausea, No Vomiting, No Diarrhea Genitourinary Symptoms: No Dysuria Musculoskeletal: No Back Pain, No Neck Pain Skin: No Rash Neurological: No Dizziness, No Focal Weakness, No Sensory Changes Psychological: No Symptoms Endocrine: No Symptoms Hematologic/Lymphatic: No Symptoms Immunological/Allergic: No Symptoms Objective Exam General Appearance: no apparent distress, alert Neurologic Exam: alert, oriented x 3, cooperative, normal mood/affect, nml cerebellar function, sensation nml, No motor deficits Skin Exam: normal color, warm, dry Eye Exam: PERRL, EOMI, eyes nml inspection Ears, Nose, Throat Exam: normal ENT inspection, pharynx normal, moist mucous membranes Neck Exam: normal inspection, non-tender, supple, full range of motion Respiratory Exam: normal breath sounds, lungs clear, No respiratory distress Cardiovascular Exam: regular rate/rhythm, normal heart sounds Gastrointestinal/Abdomen Exam: soft, No tenderness, No mass Extremity Exam: normal inspection, normal range of motion Back Exam: normal inspection, normal range of motion, No CVA tenderness, No vertebral tenderness Male Genitalia Exam: deferred Rectal Exam: deferred OBJECTIVE DATA Vital Signs: Vital Signs - 24 hr Temp Pulse Resp BP Pulse Ox 05/18/19 08:00 98.2 F 87 20 138/70 96 05/18/19 07:17 98.2 F 87 20 138/70 96 05/18/19 03:00 98.5 F 104 H 18 138/63 92 L 05/17/19 23:00 98.1 F 80 20 149/71 96 05/17/19 19:00 98.3 F 74 20 117/59 92 L 05/17/19 15:00 98.5 F 65 20 144/77 95 Pain Assessment - Last Documented Pain Intensity 4 Pain Scale Used 0-10 Pain Scale Intake and Output: Intake & Output 05/15/19 05/16/19 05/17/19 05/18/19 11:59 11:59 11:59 11:59 Intake Total 1370 1130 Output Total 2049 1100 Balance -680 30 Weight 85.5 kg Radiology Exams: CT abdomen and pelvis Impression: 1. Stable pulmonary and splenic calcified granulomas. No new pathologic visceral calcifications/calculi. 2. New urinary bladder wall thickening with stranding favoring cystitis. Also new Asif catheter in situ. 3. New bony sclerotic lesions involving right 7 rib, left 8 rib, L1, L2, both innominate bones, and right sacrum worrisome for bony metastasis. Also new remote-appearing L1 superior endplate fracture possibly pathologic. Nuclear medicine whole body bone scan study may yield further information including extent of metastasis. 4. 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 5. Stable hiatal hernia with partial intrathoracic stomach. 6. Incidental mild fecal stasis and bilateral renal cysts. Multi-Disciplinary Progress Notes: Multi-Disciplinary Progress Notes 05/17/19 15:10 Physical Therapy Note by Anita Dietrich PT. IS PLEASANTLY CONFUSED AT TIMES. REPORTS FEELING JUST OK. PT. PERFORMED BED MOBILITY W/ SBA. SIT TO STAND SBA. PT. AMBULATED 150' W/ ROLLER WALKER AND SBA. PT. NEEDS WALKER D/T UNPREDICTABLE BALANCE AT TIMES. WILL WALK W/ NSG OVER THE WEEKEND AND WILL CONT. P.T. 05/20/19 IF PT. STILL HERE. ANITA DIETRICH PT Initialized on 05/17/19 15:10 - END OF NOTE Assessment/Plan (1) Cystitis due to Pseudomonas Current Visit: Yes Status: Acute Assessment & Plan: Patient urine is showing pseudomonas organism. Which is sensitive to meropenem. We will start patient's on meropenem pharmacy to dose. Last Vital Signs Temp 98.2 F 05/18/19 08:00 Pulse 87 05/18/19 08:00 Resp 20 05/18/19 08:00 BP 138/70 05/18/19 08:00 Pulse Ox 96 05/18/19 08:00 Allergies No Known Drug Allergies Allergy (Verified 06/19/18 15:42) Active Medications Acetaminophen (Tylenol 325 Mg) 650 mg PO Q4H PRN PRN PRN Reason: PAIN AND/OR FEVER Stop: 06/16/19 21:42 Last Admin: 05/18/19 11:10 Dose: 650 mg Apixaban (Eliquis 2.5 Mg Tablet) 5 mg PO BID KRISTEN Stop: 06/15/19 21:59 Last Admin: 05/18/19 10:02 Dose: 5 mg Carvedilol (Coreg 12.5 Mg) 12.5 mg PO BID KRISTEN Stop: 06/15/19 21:59 Last Admin: 05/18/19 10:03 Dose: 12.5 mg Diltiazem HCl (Cardizem Cd 120 Mg) 240 mg PO DAILY KRISTEN Stop: 06/16/19 09:59 Last Admin: 05/18/19 10:01 Dose: 240 mg Finasteride (Proscar 5 Mg) 5 mg PO DAILY KRISTEN Stop: 06/16/19 09:59 Last Admin: 05/18/19 10:04 Dose: 5 mg Meropenem 1 g/ Sodium Chloride 100 mls @ 200 mls/hr IV Q12HT KRISTEN Stop: 06/17/19 11:59 Levetiracetam (Keppra 250 Mg) 250 mg PO BID KRISTEN Stop: 06/15/19 21:59 Last Admin: 05/18/19 10:02 Dose: 250 mg Pantoprazole Sodium (Protonix 40mg Tablet) 40 mg PO DAILY KRISTEN Stop: 06/16/19 09:59 Last Admin: 05/18/19 10:02 Dose: 40 mg Polyethylene Glycol (Miralax Powder 17gm Packet) 17 gm PO DAILY KRISTEN Stop: 06/16/19 09:59 Last Admin: 05/18/19 10:01 Dose: 17 gm Simvastatin (Zocor 20mg) 40 mg PO HS KRISTEN Stop: 06/15/19 21:59 Last Admin: 05/17/19 21:38 Dose: 40 mg Sodium Chloride (Sodium Chloride 0.9% 10 Ml Flush Syringe) 10 ml IV Q8HT KRISTEN Stop: 06/15/19 13:59 Last Admin: 05/18/19 10:04 Dose: 10 ml Sodium Chloride (Sodium Chloride 0.9% 10 Ml Flush Syringe) 10 ml IV PRN PRN Stop: 06/15/19 12:59 Tamsulosin HCl (Flomax 0.4 Mg) 0.4 mg PO HS KRISTEN Stop: 06/15/19 21:59 Last Admin: 05/17/19 21:38 Dose: 0.4 mg Intake & Output 05/17/19 05/18/19 11:59 11:59 Intake Total 1370 1130 Output Total 2049 1100 Balance -680 30 Weight 85.5 kg Orders 05/18/19 12:00 Meropenem [Merrem 1 GM] 1 g NaCl 0.9% 100 ml Mini-Bag Plus [Sodium Chloride 100ML MINI-BAG PLUS] 100 ml IV Q12HT Microbiology 05/16/19 12:30 Urine, Indwelling Catheter Urine Culture - Final Pseudomonas Aeruginosa Code(s): B96.5 - PSEUDOMONAS (MALLEI) CAUSING DISEASES CLASSD ELSWHR; N30.80 - OTHER CYSTITIS WITHOUT HEMATURIA (2) Atrial fibrillation with RVR Current Visit: Yes Status: Chronic Code(s): I48.91 - UNSPECIFIED ATRIAL FIBRILLATION (3) COPD (chronic obstructive pulmonary disease) Current Visit: Yes Status: Chronic Qualifiers: (4) Hypertension Current Visit: No Status: Chronic Qualifiers: Code(s): I10 - ESSENTIAL (PRIMARY) HYPERTENSION
[2019-05-18] MEDS: Merrem 1 GM 1 G in Sodium Chloride 100ML MINI-BAG PLUS 100 ML IV SCH ×2 (12:15→20:59)
[2019-05-18] MEDS ORDERED: MAALOX ES 30 ML UNIT DOSE PO PRN (14:15)
[2019-05-18] MEDS: ZOCOR 20MG PO SCH (20:56)
[2019-05-18] MEDS: Flomax 0.4 MG PO SCH (20:56)
[2019-05-19] MEDS: Miralax Powder 17GM PACKET PO SCH ×2 (09:07→21:45)
[2019-05-19] MEDS: Sodium Chloride 0.9% 10 ML FLUSH Syringe IV SCH ×3 (09:07→21:48)
[2019-05-19] MEDS: COREG 12.5 MG PO SCH ×2 (09:08→21:44)
[2019-05-19] MEDS: Protonix 40MG Tablet PO SCH (09:08)
[2019-05-19] MEDS: Keppra 250 MG PO SCH ×2 (09:08→21:45)
[2019-05-19] MEDS: Cardizem CD 120 MG PO SCH (09:09)
[2019-05-19] MEDS: ELIQUIS 2.5 MG TABLET PO SCH ×2 (09:09→21:44)
[2019-05-19] MEDS: Proscar 5 MG PO SCH (09:10)
[2019-05-19] MEDS: Merrem 1 GM 1 G in Sodium Chloride 100ML MINI-BAG PLUS 100 ML IV SCH ×2 (09:11→21:46)
[2019-05-19 12:35] LABS: BASOPHIL % 0.2 % (0.0-0.4); Basophil (Absolute #) 0.02 (0-0.4); Eosinophil % 2.3 % (0.00-5.0); Eosinophil (Absolute #) 0.19 (0-0.5); Granulocyte Absolute (ANC) 5.62 (1.4-6.9); Granulocytes % 68.7 % (36.0-66.0); Hematocrit 45.2 % (42-50); Hemoglobin 14.6 gm/dl (12.5-18.0); Lymphocyte (Absolute #) 1.42 (1.0-4.6); Lymphocytes % 17.4 % (24.0-44.0); Mean Cell Volume 99.1 fl (78-100); Mean Corpuscular Hgb Concent. 32.3 g/dl (32-36); Monocyte (Absolute #) 0.93 (0.0-1.3); Monocytes % 11.4 % (0.0-12.0); Platelet Count 262 K/mm3 (150-450); Red Blood Count 4.56 M/mm3 (4.1-5.6); Red Cell Distribution Width 14.4 % (11.5-14.0); White Blood Count 8.2 K/mm3 (4.0-10.5)
[2019-05-19 12:55] LABS: ANION GAP 9.1 MEQ/L (5-15); BLOOD UREA NITROGEN 14 mg/dL (9-20); CHLORIDE 102 mmol/L (98-107); Calcium 8.8 mg/dL (8.4-10.2); Carbon Dioxide 34 mmol/L (22-30); Creatinine 1 0.72 mg/dL (0.66-1.25); Glucose 136 mg/dL (74-106); Potassium 4.2 mmol/L (3.5-5.1); SODIUM 140 mmol/L (137-145)
[2019-05-19] MEDS: Flomax 0.4 MG PO SCH (21:44)
[2019-05-19] MEDS: ZOCOR 20MG PO SCH (21:44)
--- NOTE | 2019-05-19 23:09 | PCM.NOTE ---
Date and Time: 05/19/192300 Subjective Assessment: Patient states he feels good enough to go home "I need to click my ashly slippers and go back to [place]". He is able to walk with his walker but is unsteady his 1st few steps. PT is helping . He states he uses a cane if in close quarters at home. His son lives close "a [address] from patient and Home Health comes. He c/o constipation,appetite is good.No other complaints. - Review of Systems Constitutional: No Fever, No Chills Respiratory: No Cough, No Short Of Breath Cardiac: No Chest Pain, No Edema, No Syncope Abdominal/Gastrointestinal: Other (No N/V,no abdominal pain) Genitourinary Symptoms: Other (Has catheter ,denies pain.) Objective Exam General Appearance: no apparent distress, alert Neurologic Exam: alert, oriented x 3, cooperative, normal mood/affect (very pleasant) Skin Exam: normal color, warm, dry Respiratory Exam: diminished breath sounds (bases decreased BS ,no rales no ronchi,no wheeze,no dyspnea.) Gastrointestinal/Abdomen Exam: soft (decreased BS), No tenderness Male Genitalia Exam: other (Urine culture grew Pseudomonas,urine in stephenie tube is clear light yellow) OBJECTIVE DATA Vital Signs: Vital Signs - 24 hr Temp Pulse Resp BP Pulse Ox 05/19/19 19:48 98.1 F 74 18 131/60 94 L 05/19/19 16:00 98.7 F 74 18 129/74 97 05/19/19 11:05 98.2 F 88 20 145/70 96 05/19/19 07:01 98.4 F 87 24 132/79 90 L 05/19/19 04:00 98.1 F 81 18 127/66 95 05/19/19 00:00 98.0 F 69 17 134/64 95 Pain Assessment - Last Documented Pain Intensity 5 Pain Scale Used 0-10 Pain Scale Intake and Output: Intake & Output 05/17/19 05/18/19 05/19/19 05/20/19 11:59 11:59 11:59 11:59 Intake Total 1370 1130 840 Output Total 2050 1100 2100 350 Balance -680 30 -1260 -350 Weight 85.5 kg Lab Results: Lab Results-Last 24 Hours 07/05/19/19 05/19/19 Range/Units 12:11 12:11 12:11 WBC 8.2 (4.0-10.5) K/mm3 RBC 4.56 (4.1-5.6) M/mm3 Hgb 14.6 (12.5-18.0) gm/dl Hct 45.2 (42-50) % MCV 99.1 (78-100) fl MCH 32.0 (26-32) pg MCHC 32.3 (32-36) g/dl RDW 14.4 H (11.5-14.0) % Plt Count 262 (150-450) K/mm3 MPV 9.0 (6-9.5) fl Gran % 68.7 H (36.0-66.0) % Eos # (Auto) 0.19 (0-0.5) Absolute Lymphs (auto) 1.42 (1.0-4.6) Absolute Monos (auto) 0.93 (0.0-1.3) Lymphocytes % 17.4 L (24.0-44.0) % Monocytes % 11.4 (0.0-12.0) % Eosinophils % 2.3 (0.00-5.0) % Basophils % 0.2 (0.0-0.4) % Absolute Granulocytes 5.62 (1.4-6.9) Basophils # 0.02 (0-0.4) Sodium 140 (137-145) mmol/L Potassium 4.2 (3.5-5.1) mmol/L Chloride 102 (98-107) mmol/L Carbon Dioxide 34 H (22-30) mmol/L Anion Gap 9.1 (5-15) MEQ/L BUN 14 (9-20) mg/dL Creatinine 0.72 (0.66-1.25) mg/dL Estimated GFR > 60.0 ML/MIN Glucose 136 H (74-106) mg/dL Hemoglobin A1c 8.18 H (4.5-6.0) % Calcium 8.8 (8.4-10.2) mg/dL Assessment/Plan (1) Cystitis due to Pseudomonas Current Visit: Yes Status: Acute Assessment & Plan: Antibiotic changed to IV Meropenem yesterday per C&S report. Code(s): B96.5 - PSEUDOMONAS (MALLEI) CAUSING DISEASES CLASSD ELSWHR; N30.80 - OTHER CYSTITIS WITHOUT HEMATURIA (2) Difficulty balancing when standing Current Visit: Yes Status: Acute Assessment & Plan: Improved with PT sessions Code(s): R26.89 - OTHER ABNORMALITIES OF GAIT AND MOBILITY (3) COPD (chronic obstructive pulmonary disease) Current Visit: Yes Status: Chronic Qualifiers: Assessment & Plan: seems at baseline (4) Diabetes mellitus type 2, uncomplicated Current Visit: Yes Status: Acute Assessment & Plan: A1C =8.18% not on meds for DM Code(s): E11.9 - TYPE 2 DIABETES MELLITUS WITHOUT COMPLICATIONS
[2019-05-20] MEDS: TYLENOL 325 MG PO PRN ×2 (08:12→15:15)
--- NOTE | 2019-05-20 09:40 | PCM.DS ---
Discharge Summary Date of Admission: 05/18/19 11:48 Admitting Physician: ISABEL VACA Primary Care Provider: ISABEL VACA Allergies Allergies No Known Drug Allergies Allergy (Verified 06/19/18 15:42) Hospital Summary - Hospital Course Hospital Course: Pt is an 88 yo male pt of mine from [facility] with PMHx prostate ca (has indwelling catheter), afib, HTN, and COPD who was admitted from office with AMS and UTI. His culture was positive for pseudomonas so he was changed from rocephin IV to meropenem; this is day #3. His AMS resolved. He is getting PT and doing well. His catheter is changed by the urologist in office so RN to contact them today and see if they could change his catheter; if so will discharge him today on po cipro. - Vitals & Intake/Output Vital Signs: Vital Signs Temperature 98.7 F 05/20/19 07:38 Pulse Rate 83 05/20/19 07:38 Respiratory Rate 24 05/20/19 07:38 Blood Pressure 124/72 05/20/19 07:38 O2 Sat by Pulse Oximetry 96 05/20/19 07:38 Intake & Output: Intake & Output 05/17/19 05/18/19 05/19/19 05/20/19 11:59 11:59 11:59 11:59 Intake Total 1370 1130 840 450 Output Total 2050 1100 2100 1600 Balance -680 30 -1260 -1150 Weight 85.5 kg - Lab Result Diagrams: 05/19/19 12:11 05/19/19 12:11 Lab Results-Last 24 Hrs: Lab Results-Last 24 Hours 05/19/19 05/19/19 05/19/19 Range/Units 12:11 12:11 12:11 WBC 8.2 (4.0-10.5) K/mm3 RBC 4.56 (4.1-5.6) M/mm3 Hgb 14.6 (12.5-18.0) gm/dl Hct 45.2 (42-50) % MCV 99.1 (78-100) fl MCH 32.0 (26-32) pg MCHC 32.3 (32-36) g/dl RDW 14.4 H (11.5-14.0) % Plt Count 262 (150-450) K/mm3 MPV 9.0 (6-9.5) fl Gran % 68.7 H (36.0-66.0) % Eos # (Auto) 0.19 (0-0.5) Absolute Lymphs (auto) 1.42 (1.0-4.6) Absolute Monos (auto) 0.93 (0.0-1.3) Lymphocytes % 17.4 L (24.0-44.0) % Monocytes % 11.4 (0.0-12.0) % Eosinophils % 2.3 (0.00-5.0) % Basophils % 0.2 (0.0-0.4) % Absolute Granulocytes 5.62 (1.4-6.9) Basophils # 0.02 (0-0.4) Sodium 140 (137-145) mmol/L Potassium 4.2 (3.5-5.1) mmol/L Chloride 102 (98-107) mmol/L Carbon Dioxide 34 H (22-30) mmol/L Anion Gap 9.1 (5-15) MEQ/L BUN 14 (9-20) mg/dL Creatinine 0.72 (0.66-1.25) mg/dL Estimated GFR > 60.0 ML/MIN Glucose 136 H (74-106) mg/dL Hemoglobin A1c 8.18 H (4.5-6.0) % Calcium 8.8 (8.4-10.2) mg/dL Micro Results-Entire Visit: Microbiology 05/16/19 12:30 Urine Culture - Final Urine, Indwelling Catheter Pseudomonas Aeruginosa - Procedures and Test Procedures and Tests throughout Hospitalization: Therapy Orders & Screens 05/16/19 11:25 PT Eval & Treat ( Order) ROUTINE Reason for Eval:: GAIT ABNORMALITY Diagnosis: UTI,GAIT ABNORMALITY Discharge Exam General Appearance: no apparent distress, alert Neurologic Exam: oriented x 3, cooperative Eye Exam: eyes nml inspection Ears, Nose, Throat Exam: moist mucous membranes Neck Exam: normal inspection Respiratory Exam: normal breath sounds, lungs clear, No crackles/rales, No rhonchi, No wheezing Cardiovascular Exam: regular rate/rhythm, normal heart sounds, No murmur Gastrointestinal/Abdomen Exam: soft, normal bowel sounds, No tenderness, No distention, No mass, No guarding, No rebound Back Exam: normal inspection, No rash Extremity Exam: normal inspection, No pedal edema, No swelling Skin Exam: normal color, warm, dry, No rash Final Diagnosis/Problem List - Final Discharge Diagnosis/Problem (1) Cystitis due to Pseudomonas Current Visit: Yes Status: Acute Assessment & Plan: Home on cipro if urology available to change the catheter. Code(s): B96.5 - PSEUDOMONAS (MALLEI) CAUSING DISEASES CLASSD ELSWHR; N30.80 - OTHER CYSTITIS WITHOUT HEMATURIA (2) Physical deconditioning Current Visit: Yes Status: Acute Assessment & Plan: PT via home health. Code(s): R53.81 - OTHER MALAISE (3) Diabetes mellitus type 2, uncomplicated Current Visit: Yes Status: Chronic Code(s): E11.9 - TYPE 2 DIABETES MELLITUS WITHOUT COMPLICATIONS (4) Atrial fibrillation Current Visit: No Status: Chronic Code(s): I48.91 - UNSPECIFIED ATRIAL FIBRILLATION - Discharge Disposition: Home, Self-Care Condition: Stable Prescriptions: No Action Tamsulosin HCl 0.4 mg [Flomax 0.4 MG] 0.4 mg PO HS Omeprazole 20 MG [Prilosec 20 mg] 20 mg PO DAILY Simvastatin 40 mg [Zocor 40 mg] 40 mg PO HS Apixaban [Eliquis 5 mg Tablet] 5 mg PO BID #60 tablet Albuterol Sulfate [Proair Hfa] 2 puff IH Q4H PRN PRN #1 hfa.aer.ad PRN Reason: wheezing Polyethylene Glycol 3350 [Clearlax] 17 gm PO BIDPRN PRN PRN Reason: Constipation Loperamide HCl 2 mg [Imodium 2 mg] 2 mg PO PRN PRN #120 capsule MDD 8 PRN Reason: Diarrhea Finasteride 5 mg [Proscar 5 MG] 5 mg PO DAILY Carvedilol 12.5 mg [Coreg 12.5 mg] 12.5 mg PO BID Ketorolac Tromethamine [Toradol] 10 mg PO Q8HPRN PRN PRN Reason: Pain Diltiazem HCl [Diltiazem 24Hr ER] 240 mg PO DAILY levETIRAcetam [Levetiracetam] 250 mg PO BID Additional Instructions: [facility] WILL CONTINUE PROVIDING HOME HEALTH SERVICES FOR YOU. YOU MAY CALL THEM AT [phone] FOR ANY NEEDS. Follow up with: [facility] [Family Provider] - 1 Week ISABEL VACA [Primary Care Provider] - 05/27/19 12:45 pm
[2019-05-20] MEDS: Cardizem CD 120 MG PO SCH (10:12)
[2019-05-20] MEDS: ELIQUIS 2.5 MG TABLET PO SCH (10:12)
[2019-05-20] MEDS: Protonix 40MG Tablet PO SCH (10:13)
[2019-05-20] MEDS: Merrem 1 GM 1 G in Sodium Chloride 100ML MINI-BAG PLUS 100 ML IV SCH ×2 (10:13→17:13)
[2019-05-20] MEDS: Proscar 5 MG PO SCH (10:13)
[2019-05-20] MEDS: COREG 12.5 MG PO SCH (10:13)
[2019-05-20] MEDS: Miralax Powder 17GM PACKET PO SCH (10:13)
[2019-05-20] MEDS: Keppra 250 MG PO SCH (10:14)
--- NOTE | 2019-05-20 15:48 | PCM.DCORD ---
- Discharge Disposition: Home, Self-Care Condition: Stable Prescriptions: New Ciprofloxacin [Cipro 500 MG] 500 mg PO BID #8 tablet Continue Tamsulosin HCl 0.4 mg [Flomax 0.4 MG] 0.4 mg PO HS Omeprazole 20 MG [Prilosec 20 mg] 20 mg PO DAILY Simvastatin 40 mg [Zocor 40 mg] 40 mg PO HS Apixaban [Eliquis 5 mg Tablet] 5 mg PO BID #60 tablet Albuterol Sulfate [Proair Hfa] 2 puff IH Q4H PRN PRN #1 hfa.aer.ad PRN Reason: wheezing Polyethylene Glycol 3350 [Clearlax] 17 gm PO BIDPRN PRN PRN Reason: Constipation Loperamide HCl 2 mg [Imodium 2 mg] 2 mg PO PRN PRN #120 capsule MDD 8 PRN Reason: Diarrhea Finasteride 5 mg [Proscar 5 MG] 5 mg PO DAILY Carvedilol 12.5 mg [Coreg 12.5 mg] 12.5 mg PO BID Diltiazem HCl [Diltiazem 24Hr ER] 240 mg PO DAILY levETIRAcetam [Levetiracetam] 250 mg PO BID Discontinued Ketorolac Tromethamine [Toradol] 10 mg PO Q8HPRN PRN PRN Reason: Pain Additional Instructions: [facility] WILL CONTINUE PROVIDING HOME HEALTH SERVICES FOR YOU. YOU MAY CALL THEM AT [phone] FOR ANY NEEDS. Follow up with: MUSA FERNANDEZ [COURTESY STAFF] - 05/21/19 10:15 am (TO HAVE CATHETER CHANGED) [facility] - [facility] Week ISABEL VACA [Primary Care Provider] - 05/27/19 12:45 pm
[2019-05-20 17:32] VITALS: BP 98/54; PULSE 73; O2SAT 90
== END 2019-05-20 18:00 | disposition home or self-care (01) | DRG 690 ==
LOC: MED SURG 11:18 → OBSVTOIN 05-18 11:48
PROVIDERS: ADMIT Family Medicine; ATTEND Family Medicine
DX: N30.90 Cystitis, unspecified without hematuria (principal); B96.5 Pseudomonas (aeruginosa) (mallei) (pseudomallei) as the cause of diseases classified elsewhere; I48.91 Unspecified atrial fibrillation; I10 Essential (primary) hypertension; J44.9 Chronic obstructive pulmonary disease, unspecified; Z79.899 Other long term (current) drug therapy; R26.89 Other abnormalities of gait and mobility; E11.9 Type 2 diabetes mellitus without complications; G47.00 Insomnia, unspecified; Z85.46 Personal history of malignant neoplasm of prostate
CPT/HCPCS: 36415; 80048; 80053; 83036; 85025; 87077; 87086; 87186; 97161; 97530; G0378; J0696; A9270-GY

== ENCOUNTER 2019-10-08 09:30 | Day surgery (SDC) | payer MEDICARE, BC ==
[~2019-10-08 09:30] MED LIST: ACETAZOLAMIDE 250 MG TABLET PO ONE; Ak-Dilate OPHTHALMIC*** 1.065 ML, Cyclogyl 1% OPHTH SOL 5 ML 1.065 ML, GATIFLOXACIN 0.5... OP ONE; Lactated Ringers 1,000 ML IV SCH; NON-FORMULARY ITEM OP ONE; TETRACAINE 0.5% STERI-UNIT SOL OP ONE; Zofran 4 MG/2 ML VIAL IV PRN
[2019-10-08] MEDS ORDERED: LIDOCAINE HCL 1% AMPUL 5 ML IJ ONE (10:00)
[2019-10-08] MEDS ORDERED: BSS 500 ML, Fortaz/Tazicef 1 GM** 0.2 G IO ONE ×2 (10:00)
[2019-10-08] MEDS ORDERED: Epinephrine Preservative Free 1 MG/ML INTRAOP ONE (10:00)
[2019-10-08] MEDS ORDERED: BETADINE 5% OPHTHALMIC 30 ML OP ONE (10:00)
[2019-10-08 10:49] LABS: INR 1.18 (0.8-3.0); PROTIME 13.4 SECONDS (8.83-12.87)
[2019-10-08] MEDS ORDERED: DIPRIVAN 200 MG/20 ML IV ONE (11:46)
[2019-10-08 12:55] VITALS: BP 126/85; PULSE 54
[2019-10-08 13:26] VITALS: O2SAT 97
--- NOTE | 2019-10-08 14:03 | OP ---
DATE/TIME OF OPERATION: 10/08/2019 1148 TIME DICTATED: 1307 PREOPERATIVE DIAGNOSIS: Senile cataract of right eye. POSTOPERATIVE DIAGNOSIS: Senile cataract of right eye. SURGEON: Julio Machado MD AGER TENDER: None. OPERATION: Cataract extraction of right eye with an intraocular lens implant. STANDARD COMPLEX ___X___ ANESTHESIA: MAC. ___X__ Monitored anesthesia care in combination with topical and intra-cameral anesthesia (because of the established specific risk of reflux, arrhythmias, or an anxiety attack associated with ocular manipulation as well as difficulty of the back order clerk to manage such potentially catastrophic events while simultaneously attempting to complete the surgical procedure, it was deemed necessary for the patient's safety to have an anesthesiologist or a nurse mathematics education professor present during the procedure whenever possible. The anesthesiologist or the nurse mathematics education professor was utilized to monitor and regulate the intravenous sedation of the patient, so the patient was cooperative, relaxed, and comfortable). Topical anesthesia using Tetracaine eye drops together with intra cameral anesthesia using Lidocaine 1% MPF. The nurse was utilized to monitor the patient. ANESTHESIA PROVIDER: Rey Porter CRNA. COMPLICATIONS: None. BLOOD LOSS: None. INDICATIONS: The patient is undergoing cataract surgery in the hopes of eliminating the visual complaints and difficulty. PROCEDURE: After arriving at the facility's outpatient surgery area, an IV was started; the patient was given 5 mg of p.o. Versed. (If an anesthesia provider was not monitoring the patient) The patient was then given topical anesthetic Tetracaine eye drops. A cotton pellet was soaked into a solution of a combination of Zymaxid 0.5%, Miguel-Synephrine 2.5% and Ocufen (other drops might have been substituted referenced in the patient's record). The pellet was inserted by the RN into the lower conjunctival cul-de-sac with a sterile forceps and left for 20 minutes. The pellet was then removed by the RN with a sterile forceps before taking the patient to the operating room. The preoperative area nurse identified the patient and marked the correct eye to be operated on. I identified the correct eye to be operated on and marked it appropriately in the outpatient surgery area. The patient was then taken into the operating room. Tetracaine eye drops were installed again in the correct eye. The eyelids and the lashes and the lid margins were scrubbed with Betadine solution. One drop of the diluted Betadine solution was placed in the conjunctival cul-de-sac for 45 seconds and then was irrigated. A drop of Tetracaine Gel was placed in the conjunctival cul-de-sac. The patient's forehead was taped to secure it during the procedure. The patient was monitored. The patient was then draped in the usual way for this procedure. An eye speculum was used to separate the eyelids. The eye was then fixated and a temporal 2.5 mm incision was made in the clear cornea temporally at the limbus. Through the incision, 0.25 cc of 1% non-preserved lidocaine was injected into the anterior chamber for intracameral anesthesia. The anterior chamber was then filled with viscoelastic. ___X__ The pupil was small. I felt that it would be safer to mechanically dilate the pupil. A Malyugin ring was used at this point which dilated the pupil. That was removed at the end of the procedure prior to aspiration of the viscoelastic from the anterior chamber and posterior to the intraocular lens implant. The cataract had a great amount of cortical changes. That rendered seeing the anterior capsule difficult for a safe performance of an anterior capsulotomy. I injected an air bubble into the anterior chamber. I then injected 1 ML of vision blue solution into the anterior chamber. The vision blue solution was irrigated from the anterior chamber after 30 seconds. The anterior capsule was stained which facilitated performing the anterior capsulotomy safely. After that was completed, a cystotome was introduced into the anterior chamber and a round anterior capsulotomy was performed. The capsule was removed by a forceps. Hydrodissection was next carried utilizing a 25-gauge cannula and balanced salt solution to delineate the cortical material from the capsule and the nucleus from the cortical material. The nucleus was rotated freely into the capsular bag with no difficulty. The phaco tip of the [facility] Phacoemulsifier was introduced into the anterior chamber and two grooves were made into the nucleus 90 degrees apart. Using two spatulas resulted into the nucleus being fractured into four quadrants. The phaco tip was then used to remove each quadrant of the nucleus. Viscoelastic was used during this process to protect the corneal endothelium. Once the entire nucleus was removed, the phaco tip then was removed and the irrigation tip was introduced into the eye and the cortex was removed. The posterior capsule was polished. It was noticed that there was a tear into the posterior capsule with few vitreous strands into the pupil plan. An anterior vitrectomy was performed. A 21.00 diopter, [id number], posterior chamber lens implant, was inspected and found to be grossly normal. The implant was inserted into the implant injector cartridge; Viscoelastic again was introduced into the anterior chamber, which filled the capsular bag. The implant injector's cartridge tip was placed at the limbal wound and the posterior chamber implant was released into the capsular bag and rotated appropriately. The implant was found to be into the capsular bag and it was centered. 0.2 ml of Tri-Moxi was introduced via 27 gauge cannula into the vitreous cavity through the ciliary processes. Viscoelastic was aspirated from the anterior chamber and posterior to the intraocular lens implant from the capsular bag using the irrigating tip. The anterior chamber was irrigated and filled with 5 cc antibiotic solution (500 cc of BSS plus 2 ml of Fortaz 100 mg/ml) ( if patient was not allergic to the medication). The lips of the corneal incision were hydrated using BSS solution. The anterior chamber was checked and found to be water tight. ___X__ One drop each of antibiotic, steroid and NSAID drops (refer to chart for drops used) were placed in the conjunctival cul-de-sac of the operated eye. Patient tolerated the procedure quite well and left the operating room in satisfactory condition. DISCHARGE SUMMARY: The patient was released in stable condition. The patient and those with the patient were given an instruction sheet as of how to care for the eye after surgery as well as counseling on any abnormal laboratory studies by the postoperative RN. The patient was also given an appointment card for follow-up in the office and is to call immediately for any difficulties including but not limited to pain in the eye, decreased vision, discharge from the eye, headache and or fever. DISCHARGE DIAGNOSIS: Pseudophakia of right eye.
== END 2019-10-08 13:10 | disposition home or self-care (01) ==
LOC: SDC 09:30
PROVIDERS: ATTEND Ophthalmology
DX: H25.811 Combined forms of age-related cataract, right eye (principal); I10 Essential (primary) hypertension; I48.91 Unspecified atrial fibrillation; N40.0 Benign prostatic hyperplasia without lower urinary tract symptoms; Z79.01 Long term (current) use of anticoagulants; Z79.899 Other long term (current) drug therapy
CPT/HCPCS: 36415; 66982; 85610; 99100; C1780; J0171; J2704; A9270-GY

== ENCOUNTER 2019-11-03 12:46 | Inpatient (IN) | payer MEDICARE, BC ==
--- NOTE | 2019-11-03 12:52 | ERPHSYRPT ---
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 tthe patient arrives to the emergency department via EMS. The nursing staff at [place] reports that the patient is seeing people, animals and objects that are not present in the room. The patient's daughter eventually arrived [facility] and informed me tthat her brother visitation yesterday and noticed that he was seeing people in the room that aren't there in addition to animals and objects that were not present. To her knowledge and brothers, and his symptoms started yesterday and gradually got worse last night and today. He reportedly was doing well until yesterday. There is no reported fall, recent injury, fever, chills and is unknown the last time the patient had his Gaytan catheter changed. I did note on the patient's paperwork that he was prescribed cefepime recently for a UTI that was recently changed to use Levaquin 2 days ago and he supposed to take this medicine for a total of 7 days. Details pertaining to the history of present illness remaining given the patient 's history of being hard of hearing and him being a poor historian. Allergies/Adverse Reactions: No Known Drug Allergies Allergy (Verified 09/27/19 12:11) Home Medications: Diltiazem HCl [Diltiazem 24Hr ER] 240 mg PO HS 05/16/19 [History] Finasteride 5 mg [Proscar 5 MG] 5 mg PO DAILY 05/16/19 [History] Fluoxetine HCl 20 mg [Prozac 20 MG] 20 mg PO DAILY 09/27/19 [History] lisinopriL [Zestril] 2.5 mg PO DAILY 09/27/19 [History] Aspirin 81 mg PO DAILY 11/03/19 [History] Atorvastatin Calcium 80 mg PO HS 11/03/19 [History] Cefdinir 300 mg PO HS 11/03/19 [History] Levofloxacin [Levaquin] 500 mg PO DAILY 11/03/19 [History] Metformin HCl 850 mg [Glucophage 850 MG] 850 mg PO BID 11/03/19 [History] Metoprolol Succinate 50 mg [Toprol Xl 50 MG] 50 mg PO HS 11/03/19 [History ] Prednisolone Acetate [Pred Forte] 1 ml OP QID 11/03/19 [History] Quetiapine Fumarate 25 mg [Seroquel 25 MG] 25 mg PO HS 11/03/19 [History] Sodium Chloride [Codi-128] 15 ml OP HS 11/03/19 [History] levETIRAcetam [Levetiracetam] 250 mg PO BID 11/03/19 [History] Hx Tetanus, Diphtheria Vaccination/Date Given: Yes Hx Influenza Vaccination/Date Given: Yes Hx Pneumococcal Vaccination/Date Given: Yes - Review of Systems Constitutional: No Fever, No Chills Respiratory: Cough Abdominal/Gastrointestinal: No Abdominal Pain, No Nausea, No Vomiting Neurological: Other (Hallucinations), No Headache Immunological/Allergic: No Symptoms All Other Systems: Unable due to condition (Hearing and possible dementia) - Past Medical History Pertinent Past Medical History: Yes Neurological History: No Pertinent History ENT History: No Pertinent History Cardiac History: High Cholesterol, Hypertension, Myocardial Infarction (MA) Respiratory History: Bronchitis, Pneumonia Endocrine Medical History: No Pertinent History Musculoskeletal History: Arthritis GI Medical History: GERD, Hernia, Other History: Other Psycho-Social History: No Pertinent History Male Reproductive Disorders: Prostate Cancer, Prostate Problems Other Medical History: left inguinal hernia, gallstones, skin cancer; chronic gaytan d/t retention - Past Surgical History Past Surgical History: Yes Neuro Surgical History: No Pertinent History Cardiac: Cardiac Catheterization Respiratory: No Pertinent History Gastrointestinal: Hernia Repair Genitourinary: No Pertinent History Musculoskeletal: No Pertinent History Male Surgical History: No Pertinent History Other Surgical History: left inguinal hernia repair - Social History Smoking Status: Former smoker Exposure to second hand smoke: No Drug Use: none Patient Lives Alone: No - Nursing Vital Signs Nursing Vital Signs: Initial Vital Signs Temperature 97.6 F 11/03/19 12:47 Pulse Rate 91 H 11/03/19 12:47 Respiratory Rate 18 11/03/19 12:47 Blood Pressure 111/67 11/03/19 12:47 O2 Sat by Pulse Oximetry 97 11/03/19 12:47 Pain Scale Pain Intensity 0 - Physical Exam General Appearance: no apparent distress, alert Eye Exam: PERRL/EOMI, eyes nml inspection Ears, Nose, Throat Exam: normal ENT inspection, moist mucous membranes, No pharyngeal erythema, No tonsillar exudate Neck Exam: normal inspection, supple Respiratory Exam: normal breath sounds, lungs clear, airway intact, No chest tenderness, No respiratory distress, No diminished breath sounds, No accessory muscle use Cardiovascular Exam: regular rate/rhythm, normal heart sounds, capillary refill <2 sec, No edema Gastrointestinal/Abdomen Exam: soft, No tenderness, No distention, No mass Male Genitalia Exam: normal genitalia, other (Gaytan catheter in place with dark brown-colored urine present in the collection bag) Back Exam: normal inspection Extremity Exam: normal inspection, other (Hand Stoner strength 4+ bilateral, dorsiflexion and plantar flexion 4+ bilateral) Neurologic Exam: alert, cooperative, other (Knows the year, who the president is , and is oriented to person, no pronator drift) Skin Exam: normal color SpO2 Interpretation: normal O2 Delivery: Room Air - Course Nursing assessment & vital signs reviewed: Yes EKG Interpreted by Me: A-fib, Other (Vent rate 77 bpm, QRS duration 132 ms, QT/ QTc 451 ms RBBB similar to EKG dated 01/05/16) - Radiology Exams Chest X-ray Interpretation: Interpreted by me, Reviewed by me, Negative - CT Exams Head CT Interpretation: Tele-radiologist Report, Other (On my review evidence of volume loss and old right parietal occipital CVA. No ICH. Radiologist evidence of a subacute CVA to the right occipital lobe ) Ordered Tests: Active Orders 24 hr Category Date Time Status Catheter-[place] Gaytan ROUTINE Care 11/03/19 15:55 Active Code Status Order ROUTINE Care 11/03/19 15:55 Active EKG-ER Only STAT Care 11/03/19 13:01 Completed Gaytan [Catheter-[place] Gaytan] STAT Care 11/03/19 13:25 Completed IV Care Q6H Care 11/03/19 15:55 Active IV Insertion STAT Care 11/03/19 13:01 Completed Gage Rodriguez ROUTINE Care 11/03/19 15:55 Active Vital Signs Q4H Care 11/03/19 15:55 Active Weight,Daily 0600 Care 11/03/19 15:55 Active Cardiac Diet Diet 11/03/19 Dinner Active CHEST 2 VIEWS (PA AND LAT) Stat Exams 11/03/19 13:02 Completed HEAD WITHOUT CONTRAST [CT] Stat Exams 11/03/19 13:19 Completed BLOOD CULTURE Stat Lab 11/03/19 16:10 Received BMP AM.LAB Lab 11/04/19 04:00 Ordered BMP Stat Lab 11/03/19 13:01 Completed CBC W DIFF AM.LAB Lab 11/04/19 04:00 Ordered CBC W DIFF Stat Lab 11/03/19 13:20 Completed CULTURE,URINE Stat Lab 11/03/19 16:00 Received Hepatic Function Panel Stat Lab 11/03/19 13:01 Completed TROPONIN Stat Lab 11/03/19 13:01 Completed UA W/RFX UR CULTURE Stat Lab 11/03/19 15:00 Completed Medication Summary Generic Name Dose Route Start Last Admin Trade Name Freq PRN Reason Stop Dose Admin Acetaminophen 650 mg 11/04/19 01:44 11/04/19 01:46 Tylenol 325 Mg PO 12/04/19 01:43 650 mg Q4H PRN PRN Administration PAIN AND/OR FEVER Apixaban 5 mg 11/03/19 22:00 11/03/19 22:33 Eliquis 2.5 Mg Tablet PO 12/03/19 21:59 5 mg BID KRISTEN Administration Diltiazem HCl 240 mg 11/03/19 22:00 11/03/19 22:32 Cardizem Cd 120 Mg PO 12/03/19 21:59 240 mg HS KRISTEN Administration Fluoxetine HCl 20 mg 11/04/19 10:00 Prozac 20 Mg PO 12/04/19 09:59 DAILY KRISTEN Meropenem 1 g/ Sodium Chloride 100 mls @ 200 mls/hr 11/03/19 17:00 11/03/19 22:34 IV 12/03/19 16:59 200 mls/hr Q8HT KRISTEN Administration Levetiracetam 250 mg 11/03/19 22:00 11/03/19 22:32 Keppra 250 Mg PO 12/03/19 21:59 250 mg BID KRISTEN Administration Lisinopril 2.5 mg 11/04/19 10:00 Zestril 5 Mg PO 12/04/19 09:59 DAILY KRISTEN Metoprolol Tartrate 50 mg 11/03/19 22:00 11/03/19 22:33 Lopressor 50 Mg PO 12/03/19 21:59 50 mg HS KRISTEN Administration Discontinued Medications Generic Name Dose Route Start Last Admin Trade Name Bryanna PRN Reason Stop Dose Admin Acetaminophen 1,000 mg 11/03/19 14:19 11/03/19 14:30 Tylenol Extra Strength 500 Mg PO 11/03/19 14:20 1,000 mg STAT STA Administration Acetaminophen Confirm 11/03/19 14:22 Tylenol Extra Strength 500 Mg Administered 11/03/19 14:23 Dose 1,000 mg .ROUTE .STK-MED ONE Diltiazem HCl 240 mg 11/04/19 10:00 Cardizem Cd 120 Mg PO 12/04/19 09:59 DAILY KRISTEN Sodium Chloride 1,000 mls @ 999 mls/hr 11/03/19 14:20 11/03/19 15:48 Sodium Chloride 0.9% 1000 Ml IV 11/03/19 15:20 Infused .Q1H1M STA Infusion Sodium Chloride Confirm 11/03/19 14:22 Sodium Chloride 0.9% 1000 Ml Administered 11/03/19 14:23 Dose 1,000 mls @ ud .ROUTE .STK-MED ONE Metoprolol Tartrate 50 mg 11/04/19 10:00 Lopressor 50 Mg PO 12/04/19 09:59 DAILY KRISTEN Lab/Rad Data: Laboratory Result Diagrams 11/03/19 13:20 11/03/19 13:01 Laboratory Results 11/03/19 11/03/19 11/03/19 Range/Units 15:00 13:20 13:01 WBC 8.3 (4.0-10.5) K/mm3 RBC 4.09 L (4.1-5.6) M/mm3 Hgb 13.4 (12.5-18.0) gm/dl Hct 40.7 L (42-50) % MCV 99.5 (78-100) fl MCH 32.8 H (26-32) pg MCHC 32.9 (32-36) g/dl RDW 13.7 (11.5-14.0) % Plt Count 239 (150-450) K/mm3 MPV 9.5 (7.5-11.0) fl Gran % 67.5 H (36.0-66.0) % Eos # (Auto) 0.11 (0-0.5) Absolute Lymphs (auto) 1.74 (1.0-4.6) Absolute Monos (auto) 0.85 (0.0-1.3) Lymphocytes % 20.9 L (24.0-44.0) % Monocytes % 10.2 (0.0-12.0) % Eosinophils % 1.3 (0.00-5.0) % Basophils % 0.1 (0.0-0.4) % Absolute Granulocytes 5.61 (1.4-6.9) Basophils # 0.01 (0-0.4) Sodium 140 (137-145) mmol/L Potassium 4.7 (3.5-5.1) mmol/L Chloride 101 (98-107) mmol/L Carbon Dioxide 29 (22-30) mmol/L Anion Gap 15.1 H (5-15) MEQ/L BUN 15 (9-20) mg/dL Creatinine 0.77 (0.66-1.25) mg/dL Estimated GFR > 60.0 ML/MIN Glucose 142 H (74-106) mg/dL Calcium 9.0 (8.4-10.2) mg/dL Total Bilirubin 0.40 (0.2-1.3) mg/dL Direct Bilirubin 0.2 (0.0-0.4) mg/dL AST 28 (17-59) U/L ALT 18 (0-50) U/L Alkaline Phosphatase 84 (38-126) U/L Troponin I 0.012 (0.000-0.034) ng/mL Serum Total Protein 6.6 (6.3-8.2) g/dL Albumin 3.7 (3.5-5.0) g/dL Urine Color YELLOW (YELLOW) Urine Appearance CLOUDY (CLEAR) Urine pH 5.0 (5-6) Ur Specific [place] 1.028 (1.005-1.025) Urine Protein 100 (Negative) Urine Ketones NEGATIVE (NEGATIVE) Urine Blood LARGE (0-5) [place]/ul Urine Nitrite NEGATIVE (NEGATIVE) Urine Bilirubin NEGATIVE (NEGATIVE) Urine Urobilinogen NEGATIVE (0-1) mg/dL Ur Leukocyte Esterase SMALL (NEGATIVE) Urine WBC (Auto) 11-15 (0-5) /HPF Urine RBC (Auto) >101 (0-2) /HPF U Epithel Cells (Auto) RARE (FEW) /HPF Urine Bacteria (Auto) MODERATE (NEGATIVE) /HPF Urine Mucus (Auto) SLIGHT (NEGATIVE) /HPF Urine Culture Reflexed ORDERED SEPARATELY (NO) Urine Glucose NEGATIVE (NEGATIVE) mg/dL - Progress Progress: unchanged Progress Note: 11/03/19 14:52 The patient's records were faxed from [facility], specifically records pertaining to his most recent hospitalization for a CVA. It appears she is admitted on October 22, 2019 and discharged on October 25, 2019. He was admitted for right-sided weakness and change in visual field in the left eye. He had a CT in addition to an MRI which showed a right occipital acute infarction and he had an echocardiogram that showed a normal EF with diastolic dysfunction. His A1c at that time was 8. hhe was treated prophylactically for a possible UTI with Rocephin. his discharge diagnoses were atrial fibrillation which was rate controlled, hypertension, prostate nodule with urinary obstruction and chronic Gaytan catheter: Right eye pain with injury to the right facial bone the door fall, and CVA. Med record discharge has the following: He is instructed to stop taking Flomax, omeprazole, simvastatin, Keflex, carvedilol, and [place]. He was instructed to continue taking Keppra 250 mg twice a day, lisinopril to have milligrams daily, diltiazem 240 mg daily, finasteride 5 mg daily, Axid and 5 mg twice a day, fluoxetine 20 mg daily, metoprolol tartrate 50 mg daily, prednisone acetate one drop 4 times daily in each eye: Sodium chloride 3 heparin to one application in the right eye daily, atorvastatin 80 mg daily. 11/04/19 02:06 Patient presents with a chief complaint of hallucinations likely secondary to a delirium that could be secondary to UTI or due to adverse effect from levofloxacin. abx switched to meropenem. Patient admitted to Dr. Day. Discussed with : Nuris Counseled pt/family regarding: lab results, diagnosis - Departure Departure Disposition: Home, Observation Clinical Impression: Delirium, UTI (urinary tract infection), CVA (cerebral vascular accident), Urinary retention, Atrial fibrillation, Hypertension, Dyslipidemia Condition: Stable Critical Care Time: No
[2019-11-03 13:28] LABS: Absolute Neutrophil Ct (ANC) 5.61 (1.4-6.9); BASOPHIL % 0.1 % (0.0-0.4); Basophil (Absolute #) 0.01 (0-0.4); Eosinophil % 1.3 % (0.00-5.0); Eosinophil (Absolute #) 0.11 (0-0.5); Hematocrit 40.7 % (42-50); Hemoglobin 13.4 gm/dl (12.5-18.0); Lymphocyte (Absolute #) 1.74 (1.0-4.6); Lymphocytes % 20.9 % (24.0-44.0); Mean Cell Volume 99.5 fl (78-100); Mean Corpuscular Hemoglobin 32.8 pg (26-32); Mean Corpuscular Hgb Concent. 32.9 g/dl (32-36); Mean Platelet Volume 9.5 fl (7.5-11.0); Monocyte (Absolute #) 0.85 (0.0-1.3); Monocytes % 10.2 % (0.0-12.0); Neutrophil % 67.5 % (36.0-66.0); Platelet Count 239 K/mm3 (150-450); Red Blood Count 4.09 M/mm3 (4.1-5.6); Red Cell Distribution Width 13.7 % (11.5-14.0); White Blood Count 8.3 K/mm3 (4.0-10.5)
[2019-11-03 13:53] LABS: ALBUMIN 3.7 g/dL (3.5-5.0); ALKALINE PHOSPHATASE 84 U/L (38-126); ANION GAP 15.1 MEQ/L (5-15); BLOOD UREA NITROGEN 15 mg/dL (9-20); CHLORIDE 101 mmol/L (98-107); Carbon Dioxide 29 mmol/L (22-30); Creatinine 1 0.77 mg/dL (0.66-1.25); Direct Bilirubin 0.2 mg/dL (0.0-0.4); Glucose 142 mg/dL (74-106); Potassium 4.7 mmol/L (3.5-5.1); SGOT/AST 28 U/L (17-59); SGPT/ALT 18 U/L (0-50); SODIUM 140 mmol/L (137-145); TROPONIN 0.012 ng/mL (0.000-0.034); Total Protein 6.6 g/dL (6.3-8.2)
[2019-11-03] MEDS ORDERED: TYLENOL EXTRA STRENGTH 500 MG PO STA (14:19)
[2019-11-03] MEDS ORDERED: Sodium Chloride 0.9% 1000 ML 1,000 ML IV STA (14:20)
[2019-11-03] MEDS ORDERED: Sodium Chloride 0.9% 1000 ML 1,000 ML ONE (14:22)
[2019-11-03] MEDS ORDERED: TYLENOL EXTRA STRENGTH 500 MG ONE (14:22)
[2019-11-03 15:16] LABS: Appearance CLOUDY (CLEAR); Bacteria MODERATE /HPF (NEGATIVE); Bilirubin NEGATIVE (NEGATIVE); Blood LARGE Ery/ul (0-5); Epithelial Cells RARE /HPF (FEW); Glucose NEGATIVE (NEGATIVE); Ketones NEGATIVE (NEGATIVE); Leukocyte Esterase SMALL (NEGATIVE); Mucus SLIGHT /HPF (NEGATIVE); Nitrite NEGATIVE (NEGATIVE); Protein,Urine Dip 100 (Negative); Specific Gravity 1.028 (1.005-1.025); Urobilinogen NEGATIVE mg/dL (0-1)
[2019-11-03 15:17] LABS: RBC >101 /HPF (0-2)
[2019-11-03] MEDS: Merrem 1 GM 1 G in Sodium Chloride 100ML MINI-BAG PLUS 100 ML IV SCH ×2 (17:02→22:34)
--- NOTE | 2019-11-03 18:59 | XRAY ---
Indication: Hallucinations. Comparison: July 11, 2018. AP/lateral chest again demonstrates right base calcified granuloma without focal infiltrate, consolidation, or large effusion. Heart is not enlarged. Bony thorax intact again with mild degenerative changes and old right lower rib fractures. Impression: Stable nonacute chest with chronic features.
--- NOTE | 2019-11-03 19:05 | XRAY ---
Indication: Confusion and hallucinations. History of stroke 12 days ago Multiple contiguous axial images obtained through the head without contrast. Comparison: December 29, 2012. New finding old right temporal lobe infarct. Right occipital lobe demonstrates new moderate size focus of cytotoxic edema presumed known ischemia. Progressive worsening global atrophy and moderate periventricular degenerative micro-ischemia bilaterally. No acute intracranial hemorrhage, hydrocephalus, or midline shifting. Bony calvarium intact. Visualized paranasal sinuses and mastoid air cells are clear. Impression: 1. Right occipital lobe ischemia. No acute hemorrhage or midline shifting. 2. Global atrophy, degenerative micro-ischemia, and old right temporal lobe infarct. Comment: Preliminary interpretation was made by [facility]. No critical discrepancy.
[2019-11-03] MEDS ORDERED: Lopressor 50 MG PO SCH (22:00)
[2019-11-03] MEDS: Keppra 250 MG PO SCH (22:32)
[2019-11-03] MEDS: Cardizem CD 120 MG PO SCH (22:32)
[2019-11-03] MEDS: ELIQUIS 2.5 MG TABLET PO SCH (22:33)
[2019-11-04] MEDS: TYLENOL 325 MG PO PRN ×2 (01:46→18:35)
[2019-11-04 05:01] LABS: Absolute Neutrophil Ct (ANC) 6.48 (1.4-6.9); BASOPHIL % 0.1 % (0.0-0.4); Basophil (Absolute #) 0.01 (0-0.4); Eosinophil % 0.9 % (0.00-5.0); Eosinophil (Absolute #) 0.08 (0-0.5); Hematocrit 39.3 % (42-50); Lymphocyte (Absolute #) 1.66 (1.0-4.6); Lymphocytes % 18.2 % (24.0-44.0); Mean Corpuscular Hemoglobin 32.7 pg (26-32); Mean Corpuscular Hgb Concent. 33.1 g/dl (32-36); Mean Platelet Volume 9.1 fl (7.5-11.0); Monocyte (Absolute #) 0.91 (0.0-1.3); Neutrophil % 70.8 % (36.0-66.0); Platelet Count 237 K/mm3 (150-450); Red Blood Count 3.97 M/mm3 (4.1-5.6); Red Cell Distribution Width 13.6 % (11.5-14.0); White Blood Count 9.1 K/mm3 (4.0-10.5)
[2019-11-04] MEDS: Merrem 1 GM 1 G in Sodium Chloride 100ML MINI-BAG PLUS 100 ML IV SCH ×2 (05:20→18:33)
[2019-11-04 05:49] LABS: ANION GAP 11.1 MEQ/L (5-15); BLOOD UREA NITROGEN 16 mg/dL (9-20); CHLORIDE 101 mmol/L (98-107); Calcium 8.7 mg/dL (8.4-10.2); Carbon Dioxide 30 mmol/L (22-30); Creatinine 1 0.71 mg/dL (0.66-1.25); Glucose 150 mg/dL (74-106); Potassium 4.1 mmol/L (3.5-5.1); SODIUM 138 mmol/L (137-145)
--- NOTE | 2019-11-04 09:05 | PCM.HP ---
History of Present Illness - Chief Complaint Chief Complaint: Delirium History of Present Illness: is a 89 year old male pt of [facility] HTN, afib, prostate nodule (with indwelling gaytan) and DM, recently placed in [place] after 4d admission at [facility] for occipital CVA, who was admitted through ER with hallucinations. He was being tx for UTI with 3d of Levaquin; changed to meropenem here. He continues to admit that he sees hallucinations, states jovially "I'm never alone!" He does not appear to know where he is today, but knows the year is 2019. Currently eating toast and an omelette. - Review of Systems All Other Systems: Unable due to condition (delerium) Medications & Allergies Home Medications: Home Medication List Apixaban [Eliquis 5 mg Tablet] 5 mg PO BID #60 tablet 01/10/16 [Rx Confirmed 11/03/19] Diltiazem HCl [Diltiazem 24Hr ER] 240 mg PO HS 05/16/19 [History Confirmed 11/03] Finasteride 5 mg [Proscar 5 MG] 5 mg PO DAILY 05/16/19 [History Confirmed 11/03/19] Fluoxetine HCl 20 mg [Prozac 20 MG] 20 mg PO DAILY 09/27/19 [History Confirmed 11/03/19] lisinopriL [Zestril] 2.5 mg PO DAILY 09/27/19 [History Confirmed 11/03/19] Aspirin 81 mg PO DAILY 11/03/19 [History Confirmed 11/03/19] Atorvastatin Calcium 80 mg PO HS 11/03/19 [History Confirmed 11/03/19] Cefdinir 300 mg PO HS 11/03/19 [History Confirmed 11/03/19] Levofloxacin [Levaquin] 500 mg PO DAILY 11/03/19 [History Confirmed 11/03/19] Metformin HCl 850 mg [Glucophage 850 MG] 850 mg PO BID 11/03/19 [History Confirmed 11/03/19] Metoprolol Succinate 50 mg [Toprol Xl 50 MG] 50 mg PO HS 11/03/19 [ History Confirmed 11/03/19] Prednisolone Acetate [Pred Forte] 1 ml OP QID 11/03/19 [History Confirmed ] Quetiapine Fumarate 25 mg [Seroquel 25 MG] 25 mg PO HS 11/03/19 [History Confirmed 11/03/19] Sodium Chloride [Codi-128] 15 ml OP HS 11/03/19 [History Confirmed 11/03/19] levETIRAcetam [Levetiracetam] 250 mg PO BID 11/03/19 [History Confirmed 11/03/19 ] Allergies/Adverse Reactions: Allergies Allergy/AdvReac Type Severity Reaction Status Date / Time No Known Drug Allergies Allergy Verified 09/27/19 12:11 - Past Medical History Past Medical History: Yes Neurological History: No Pertinent History ENT History: No Pertinent History Cardiac History: High Cholesterol, Hypertension, Myocardial Infarction ([place]) Respiratory History: Bronchitis, Pneumonia Endocrine Medical History: No Pertinent History Musculoskelatal History: Arthritis GI Medical History: GERD, Hernia, Other History: Other Pyscho-Social History: No Pertinent History Male Reproductive Disorders: Prostate Cancer, Prostate Problems Comment: left inguinal hernia, gallstones, skin cancer; chronic gaytan d/t retention - Past Surgical History Past Surgical History: Yes Neuro Surgical History: No Pertinent History Cardiac History: Cardiac Catheterization Respiratory Surgery: No Pertinent History GI Surgical History: Hernia Repair Genitourinary Surgical Hx: No Pertinent History Musculskeletal Surgical Hx: No Pertinent History Male Surgical History: No Pertinent History Other Surgical History: left inguinal hernia repair - Social History Smoking Status: Former smoker Exposure to second hand smoke: No Alcohol: None Drug Use: none - Physical Exam Vital Signs: Vital Signs - 24 hr Temp Pulse Resp BP Pulse Ox 11/04/19 08:05 98.0 F 68 20 129/75 96 11/04/19 04:00 98 F 71 19 136/61 96 11/03/19 23:57 98.1 F 67 20 145/60 95 11/03/19 20:00 97.9 F 55 L 21 135/70 94 L 11/03/19 16:15 97.3 F 86 20 132/60 94 L 11/03/19 16:03 97.3 F 86 20 132/66 94 L 11/03/19 15:50 97.8 F 78 18 108/80 98 11/03/19 13:51 97.6 F 82 18 104/76 98 11/03/19 12:47 97.6 F 91 H 18 111/67 97 General Appearance: no apparent distress, alert Neurologic Exam: cooperative, normal mood/affect, disoriented Eye Exam: eyes nml inspection Ears, Nose, Throat Exam: moist mucous membranes Neck Exam: normal inspection, non-tender, No lymphadenopathy Respiratory Exam: normal breath sounds, lungs clear, No crackles/rales, No rhonchi, No wheezing Cardiovascular Exam: regular rate/rhythm, normal heart sounds, No murmur Gastrointestinal/Abdomen Exam: soft, normal bowel sounds, No tenderness, No distention, No mass, No guarding, No rebound Extremity Exam: normal inspection, No pedal edema, No swelling Skin Exam: normal color, warm, dry, No rash Results - Labs Lab/Micro Results: Lab Results-Last 24 Hours 11/03/19 11/03/19 11/03/19 Range/Units 13:01 13:20 15:00 WBC 8.3 (4.0-10.5) K/mm3 RBC 4.09 L (4.1-5.6) M/mm3 Hgb 13.4 (12.5-18.0) gm/dl Hct 40.7 L (42-50) % MCV 99.5 (78-100) fl MCH 32.8 H (26-32) pg MCHC 32.9 (32-36) g/dl RDW 13.7 (11.5-14.0) % Plt Count 239 (150-450) K/mm3 MPV 9.5 (7.5-11.0) fl Gran % 67.5 H (36.0-66.0) % Eos # (Auto) 0.11 (0-0.5) Absolute Lymphs (auto) 1.74 (1.0-4.6) Absolute Monos (auto) 0.85 (0.0-1.3) Lymphocytes % 20.9 L (24.0-44.0) % Monocytes % 10.2 (0.0-12.0) % Eosinophils % 1.3 (0.00-5.0) % Basophils % 0.1 (0.0-0.4) % Absolute Granulocytes 5.61 (1.4-6.9) Basophils # 0.01 (0-0.4) Sodium 140 (137-145) mmol/L Potassium 4.7 (3.5-5.1) mmol/L Chloride 101 (98-107) mmol/L Carbon Dioxide 29 (22-30) mmol/L Anion Gap 15.1 H (5-15) MEQ/L BUN 15 (9-20) mg/dL Creatinine 0.77 (0.66-1.25) mg/dL Estimated GFR > 60.0 ML/MIN Glucose 142 H (74-106) mg/dL Calcium 9.0 (8.4-10.2) mg/dL Total Bilirubin 0.40 (0.2-1.3) mg/dL Direct Bilirubin 0.2 (0.0-0.4) mg/dL AST 28 (17-59) U/L ALT 18 (0-50) U/L Alkaline Phosphatase 84 (38-126) U/L Troponin I 0.012 (0.000-0.034) ng/mL Serum Total Protein 6.6 (6.3-8.2) g/dL Albumin 3.7 (3.5-5.0) g/dL Urine Color YELLOW (YELLOW) Urine Appearance CLOUDY (CLEAR) Urine pH 5.0 (5-6) Ur Specific [place] 1.028 (1.005-1.025) Urine Protein 100 (Negative) Urine Ketones NEGATIVE (NEGATIVE) Urine Blood LARGE (0-5) Hamlet/ul Urine Nitrite NEGATIVE (NEGATIVE) Urine Bilirubin NEGATIVE (NEGATIVE) Urine Urobilinogen NEGATIVE (0-1) mg/dL Ur Leukocyte Esterase SMALL (NEGATIVE) Urine WBC (Auto) 11-15 (0-5) /HPF Urine RBC (Auto) >101 (0-2) /HPF U Epithel Cells (Auto) RARE (FEW) /HPF Urine Bacteria (Auto) MODERATE (NEGATIVE) /HPF Urine Mucus (Auto) SLIGHT (NEGATIVE) /HPF Urine Culture Reflexed ORDERED SEPARATELY (NO) Urine Glucose NEGATIVE (NEGATIVE) mg/dL 11/04/19 11/04/19 Range/Units 04:47 04:47 WBC 9.1 (4.0-10.5) K/mm3 RBC 3.97 L (4.1-5.6) M/mm3 Hgb 13.0 (12.5-18.0) gm/dl Hct 39.3 L (42-50) % MCV 99.0 (78-100) fl MCH 32.7 H (26-32) pg MCHC 33.1 (32-36) g/dl RDW 13.6 (11.5-14.0) % Plt Count 237 (150-450) K/mm3 MPV 9.1 (7.5-11.0) fl Gran % 70.8 H (36.0-66.0) % Eos # (Auto) 0.08 (0-0.5) Absolute Lymphs (auto) 1.66 (1.0-4.6) Absolute Monos (auto) 0.91 (0.0-1.3) Lymphocytes % 18.2 L (24.0-44.0) % Monocytes % 10.0 (0.0-12.0) % Eosinophils % 0.9 (0.00-5.0) % Basophils % 0.1 (0.0-0.4) % Absolute Granulocytes 6.48 (1.4-6.9) Basophils # 0.01 (0-0.4) Sodium 138 (137-145) mmol/L Potassium 4.1 (3.5-5.1) mmol/L Chloride 101 (98-107) mmol/L Carbon Dioxide 30 (22-30) mmol/L Anion Gap 11.1 (5-15) MEQ/L BUN 16 (9-20) mg/dL Creatinine 0.71 (0.66-1.25) mg/dL Estimated GFR > 60.0 ML/MIN Glucose 150 H (74-106) mg/dL Calcium 8.7 (8.4-10.2) mg/dL Total Bilirubin (0.2-1.3) mg/dL Direct Bilirubin (0.0-0.4) mg/dL AST (17-59) U/L ALT (0-50) U/L Alkaline Phosphatase (38-126) U/L Troponin I (0.000-0.034) ng/mL Serum Total Protein (6.3-8.2) g/dL Albumin (3.5-5.0) g/dL Urine Color (YELLOW) Urine Appearance (CLEAR) Urine pH (5-6) Ur Specific [place] (1.005-1.025) Urine Protein (Negative) Urine Ketones (NEGATIVE) Urine Blood (0-5) Hamlet/ul Urine Nitrite (NEGATIVE) Urine Bilirubin (NEGATIVE) Urine Urobilinogen (0-1) mg/dL Ur Leukocyte Esterase (NEGATIVE) Urine WBC (Auto) (0-5) /HPF Urine RBC (Auto) (0-2) /HPF U Epithel Cells (Auto) (FEW) /HPF Urine Bacteria (Auto) (NEGATIVE) /HPF Urine Mucus (Auto) (NEGATIVE) /HPF Urine Culture Reflexed (NO) Urine Glucose (NEGATIVE) mg/dL - Radiology Impressions Radiology Exams & Impressions: Radiology Procedures Category Date Time Status CHEST 2 VIEWS (PA AND LAT) Stat Exams 11/03/19 13:02 Completed HEAD WITHOUT CONTRAST [CT] Stat Exams 11/03/19 13:19 Completed Assessment/Plan (1) Delirium Current Visit: Yes Status: Acute Assessment & Plan: Likely due to UTI. On IV meropenem. I have also asked for ammonia and keppra levels. CT head and CXR with no acute findings. Labs not concerning. If not improving today would consider MRI brain. 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 Code(s): I63.9 - CEREBRAL INFARCTION, UNSPECIFIED (3) UTI (urinary tract infection) Current Visit: Yes Status: Acute Qualifiers: Urinary tract infection type: acute cystitis Hematuria presence: with hematuria Qualified Code(s): N30.01 - Acute cystitis with hematuria Code(s): N39.0 - URINARY TRACT INFECTION, SITE NOT SPECIFIED (4) Dyslipidemia Current Visit: Yes Status: Chronic Code(s): E78.5 - HYPERLIPIDEMIA, UNSPECIFIED (5) Urinary retention Current Visit: Yes Status: Chronic Code(s): R33.9 - RETENTION OF URINE, UNSPECIFIED (6) Atrial fibrillation Current Visit: Yes Status: Chronic Qualifiers: Atrial fibrillation type: unspecified chronic Qualified Code(s): I48.20 - Chronic atrial fibrillation, unspecified; I48.2 - Chronic atrial fibrillation Code(s): I48.91 - UNSPECIFIED ATRIAL FIBRILLATION (7) Hypertension Current Visit: Yes Status: Chronic Qualifiers: Hypertension type: essential hypertension Assessment & Plan: stable Code(s): I10 - ESSENTIAL (PRIMARY) HYPERTENSION (8) Diabetes mellitus type 2, uncomplicated Current Visit: No Status: Chronic Qualifiers: Diabetes mellitus alf insulin use: without termite helper use Qualified Code(s): E11.9 - Type 2 diabetes mellitus without complications Code(s): E11.9 - TYPE 2 DIABETES MELLITUS WITHOUT COMPLICATIONS (9) Seizure Current Visit: No Status: Chronic Assessment & Plan: on [facility] Code(s): R56.9 - UNSPECIFIED CONVULSIONS
[2019-11-04] MEDS ORDERED: NON-FORMULARY ITEM (Aspirin [Aspirin] 81 MG) PO SCH (10:00)
[2019-11-04] MEDS ORDERED: Cardizem CD 120 MG PO SCH (10:00)
[2019-11-04] MEDS ORDERED: Prozac 20 MG PO SCH (10:00)
[2019-11-04] MEDS ORDERED: Lopressor 50 MG PO SCH (10:00)
[2019-11-04] MEDS ORDERED: MEDICATION INTERVENTION MC SCH (10:15)
[2019-11-04] MEDS: Keppra 250 MG PO SCH ×2 (12:28→20:42)
[2019-11-04] MEDS: ELIQUIS 2.5 MG TABLET PO SCH ×2 (12:28→20:42)
[2019-11-04] MEDS: ECOTRIN 81 MG PO SCH (12:29)
[2019-11-04] MEDS: Prozac 20 MG PO SCH (12:30)
[2019-11-04] MEDS: Zestril 5 MG PO SCH (12:36)
[2019-11-04] MEDS: PRED-FORTE 1% OPHTHALMIC OP SCH ×4 (12:37→20:42)
[2019-11-04] MEDS: Proscar 5 MG PO SCH (12:38)
[2019-11-04] MEDS: Cardizem CD 120 MG PO SCH (20:41)
[2019-11-04] MEDS: ZOCOR 20MG PO SCH (20:42)
[2019-11-04] MEDS: Seroquel 25 MG PO SCH (20:42)
[2019-11-04] MEDS: Toprol Xl 50 MG PO SCH (20:42)
[2019-11-04] MEDS ORDERED: NON-FORMULARY ITEM (Atorvastatin Calcium [Atorvastatin Calcium] 80 MG) PO SCH (22:00)
[2019-11-04] MEDS ORDERED: [UNRECOGNIZED DRUG - OTHER] OP SCH (22:00)
[2019-11-04] MEDS ORDERED: SODIUM CHLORIDE OP SCH (22:00)
[2019-11-05] MEDS: Merrem 1 GM 1 G in Sodium Chloride 100ML MINI-BAG PLUS 100 ML IV SCH ×2 (05:31→18:03)
--- NOTE | 2019-11-05 09:11 | PCM.NOTE ---
Date and Time: 11/05/19907 Subjective Assessment: Last night he was agitated, seeing snakes, and his HR was 145 at that point with elevated bp (to 184 systolic). However all his other vital signs have been normal, with BP 118-134 systolic. This morning he says he doesn't remember anything about last night. He was somewhat agitated when I entered the room, as he had just spilled his milk while looking for his teeth. He is oriented x 3, and was pleasant when the situation was taken care of. - Review of Systems Constitutional: No Fever Abdominal/Gastrointestinal: No Vomiting Objective Exam General Appearance: no apparent distress, alert Neurologic Exam: oriented x 3, cooperative Skin Exam: normal color, warm, dry, No rash Respiratory Exam: normal breath sounds, lungs clear, No crackles/rales, No rhonchi, No wheezing Cardiovascular Exam: regular rate/rhythm, normal heart sounds, No murmur Gastrointestinal/Abdomen Exam: soft, normal bowel sounds, No tenderness, No distention, No mass, No guarding, No rebound Extremity Exam: No pedal edema, No swelling Back Exam: normal inspection, No rash OBJECTIVE DATA Vital Signs: Vital Signs - 24 hr Temp Pulse Resp BP Pulse Ox 11/05/19 07:36 97.9 F 76 20 118/68 96 11/05/19 04:00 97.8 F 66 18 118/58 94 L 11/04/19 20:00 97 F 145 H 18 184/82 93 L 11/04/19 16:15 98.2 F 76 20 134/84 97 11/04/19 12:00 98.6 F 76 18 134/72 95 Pain Assessment - Last Documented Pain Intensity 0 Pain Scale Used 0-10 Pain Scale Intake and Output: Intake & Output 11/02/19 11/03/19 11/04/19 11/05/19 11:59 11:59 11:59 11:59 Intake Total 670 972 Output Total 650 1000 Balance 20 -28 Weight 86.5 kg 86.8 kg Lab Results: Lab Results-Last 24 Hours 11/04/19 11/04/19 Range/Units 09:20 09:20 Ammonia < 9 L (9-30) umol/L Levetiracetam 4 L (5-30) mcg/mL Radiology Exams: Radiology Procedures Category Date Time Status CHEST 2 VIEWS (PA AND LAT) Stat Exams 11/03/19 13:02 Completed HEAD WITHOUT CONTRAST [CT] Stat Exams 11/03/19 13:19 Completed Assessment/Plan (1) Delirium Current Visit: Yes Status: Acute Assessment & Plan: Gone this morning. Doing better today. Will discuss with family. 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 Code(s): N39.0 - URINARY TRACT INFECTION, SITE NOT SPECIFIED (4) Dyslipidemia Current Visit: Yes Status: Chronic Code(s): E78.5 - HYPERLIPIDEMIA, UNSPECIFIED (5) Urinary retention Current Visit: Yes Status: Chronic Code(s): R33.9 - RETENTION OF URINE, UNSPECIFIED (6) Atrial fibrillation Current Visit: Yes Status: Chronic Qualifiers: Atrial fibrillation type: unspecified chronic Qualified Code(s): I48.20 - Chronic atrial fibrillation, unspecified; I48.2 - Chronic atrial fibrillation Code(s): I48.91 - UNSPECIFIED ATRIAL FIBRILLATION (7) Hypertension Current Visit: Yes Status: Chronic Qualifiers: Hypertension type: essential hypertension Code(s): I10 - ESSENTIAL (PRIMARY) HYPERTENSION (8) Diabetes mellitus type 2, uncomplicated Current Visit: No Status: Chronic Qualifiers: Diabetes mellitus fdc insulin use: without intermodal truck driver use Qualified Code(s): E11.9 - Type 2 diabetes mellitus without complications Code(s): E11.9 - TYPE 2 DIABETES MELLITUS WITHOUT COMPLICATIONS (9) Seizure Current Visit: No Status: Chronic Code(s): R56.9 - UNSPECIFIED CONVULSIONS
[2019-11-05] MEDS: ECOTRIN 81 MG PO SCH (09:27)
[2019-11-05] MEDS: Prozac 20 MG PO SCH (09:27)
[2019-11-05] MEDS: Keppra 250 MG PO SCH ×2 (09:28→21:52)
[2019-11-05] MEDS: PRED-FORTE 1% OPHTHALMIC OP SCH ×4 (09:28→21:52)
[2019-11-05] MEDS: ELIQUIS 2.5 MG TABLET PO SCH ×2 (09:28→21:52)
[2019-11-05] MEDS: Zestril 5 MG PO SCH (09:28)
[2019-11-05] MEDS: Proscar 5 MG PO SCH (09:28)
[2019-11-05] MEDS: TYLENOL 325 MG PO PRN (11:24)
[2019-11-05] MEDS: Seroquel 25 MG PO SCH (21:52)
[2019-11-05] MEDS: ZOCOR 20MG PO SCH (21:52)
[2019-11-05] MEDS: Toprol Xl 50 MG PO SCH (21:52)
[2019-11-05] MEDS: Cardizem CD 120 MG PO SCH (21:53)
[2019-11-06] MEDS: Merrem 1 GM 1 G in Sodium Chloride 100ML MINI-BAG PLUS 100 ML IV SCH ×2 (06:07→17:37)
[2019-11-06 09:11] LABS: Hematocrit 38.4 % (42-50); Hemoglobin 12.4 gm/dl (12.5-18.0); Mean Cell Volume 101.1 fl (78-100); Mean Corpuscular Hemoglobin 32.6 pg (26-32); Mean Corpuscular Hgb Concent. 32.3 g/dl (32-36); Mean Platelet Volume 9.6 fl (7.5-11.0); Platelet Count 210 K/mm3 (150-450); Red Cell Distribution Width 13.8 % (11.5-14.0); White Blood Count 8.2 K/mm3 (4.0-10.5)
[2019-11-06 09:31] LABS: ANION GAP 9.9 MEQ/L (5-15); BLOOD UREA NITROGEN 15 mg/dL (9-20); CHLORIDE 103 mmol/L (98-107); Calcium 8.2 mg/dL (8.4-10.2); Carbon Dioxide 31 mmol/L (22-30); Creatinine 1 0.55 mg/dL (0.66-1.25); Glucose 181 mg/dL (74-106); Potassium 4.1 mmol/L (3.5-5.1); SODIUM 140 mmol/L (137-145)
[2019-11-06] MEDS: Zestril 5 MG PO SCH (09:42)
[2019-11-06] MEDS: ELIQUIS 2.5 MG TABLET PO SCH ×2 (09:42→21:57)
[2019-11-06] MEDS: Prozac 20 MG PO SCH (09:42)
[2019-11-06] MEDS: PRED-FORTE 1% OPHTHALMIC OP SCH ×4 (09:43→21:58)
[2019-11-06] MEDS: ECOTRIN 81 MG PO SCH (09:43)
[2019-11-06] MEDS: Keppra 250 MG PO SCH ×2 (09:43→21:57)
[2019-11-06] MEDS: Proscar 5 MG PO SCH (09:43)
[2019-11-06] MEDS: TYLENOL 325 MG PO PRN ×2 (10:43→22:04)
[2019-11-06] MEDS: Seroquel 25 MG PO SCH (21:57)
[2019-11-06] MEDS: Cardizem CD 120 MG PO SCH (21:57)
[2019-11-06] MEDS: ZOCOR 20MG PO SCH (21:57)
[2019-11-06] MEDS: Toprol Xl 50 MG PO SCH (22:04)
[2019-11-07] MEDS: Merrem 1 GM 1 G in Sodium Chloride 100ML MINI-BAG PLUS 100 ML IV SCH (05:42)
--- NOTE | 2019-11-07 07:51 | PCM.NOTE ---
Date and Time: 11/07/19 0748 Late entry for 06/06/20 0815 Subjective Assessment: Pt oriented to place and time, no complaints this morning. kanika po well. - Review of Systems Constitutional: No Fever Abdominal/Gastrointestinal: No Vomiting Objective Exam General Appearance: no apparent distress, alert Neurologic Exam: oriented x 3, cooperative, normal mood/affect Skin Exam: normal color, warm, dry, No rash Ears, Nose, Throat Exam: moist mucous membranes Respiratory Exam: normal breath sounds, lungs clear, No crackles/rales, No rhonchi, No wheezing Cardiovascular Exam: regular rate/rhythm, normal heart sounds, No murmur Gastrointestinal/Abdomen Exam: soft, normal bowel sounds, No tenderness Extremity Exam: No pedal edema, No swelling Back Exam: normal inspection, No rash OBJECTIVE DATA Vital Signs: Vital Signs - 24 hr Temp Pulse Resp BP Pulse Ox 11/07/19 07:34 97.7 F 74 20 116/68 95 11/07/19 03:57 97.8 F 67 20 103/64 96 11/06/19 20:00 98.5 F 79 18 108/58 96 11/06/19 16:00 98.9 F 83 18 111/67 94 L 11/06/19 12:00 98.6 F 62 18 101/62 95 Pain Assessment - Last Documented Pain Intensity 2 Pain Scale [facility] Intake and Output: Intake & Output 11/04/19 11/05/19 11/06/19 11/07/19 11:59 11:59 11:59 11:59 Intake Total 164 638 1326 860 Output Total 650 1000 1250 775 Balance 20 -28 2 85 Weight 86.5 kg 86.8 kg 87 kg 86.9 kg Lab Results: Lab Results-Last 24 Hours 11/06/19 11/06/19 Range/Units 09:04 09:04 WBC 8.2 (4.0-10.5) K/mm3 RBC 3.80 L (4.1-5.6) M/mm3 Hgb 12.4 L (12.5-18.0) gm/dl Hct 38.4 L (42-50) % MCV 101.1 H (78-100) fl MCH 32.6 H (26-32) pg MCHC 32.3 (32-36) g/dl RDW 13.8 (11.5-14.0) % Plt Count 210 (150-450) K/mm3 MPV 9.6 (7.5-11.0) fl Sodium 140 (137-145) mmol/L Potassium 4.1 (3.5-5.1) mmol/L Chloride 103 (98-107) mmol/L Carbon Dioxide 31 H (22-30) mmol/L Anion Gap 9.9 (5-15) MEQ/L BUN 15 (9-20) mg/dL Creatinine 0.55 L (0.66-1.25) mg/dL Estimated GFR > 60.0 ML/MIN Glucose 181 H (74-106) mg/dL Calcium 8.2 L (8.4-10.2) mg/dL Multi-Disciplinary Progress Notes: Multi-Disciplinary Progress Notes 11/06/19 09:08 Pharmacy Note by Maksim Boudreaux Urine and blood cultures show no growth. Recommend changing to oral antibiotics when able. Initialized on 11/06/19 09:08 - END OF NOTE Assessment/Plan (1) Delirium Current Visit: Yes Status: Resolved Code(s): R41.0 - DISORIENTATION, UNSPECIFIED (2) UTI (urinary tract infection) Current Visit: Yes Status: Acute Qualifiers: Urinary tract infection type: acute cystitis Hematuria presence: with hematuria Qualified Code(s): N30.01 - Acute cystitis with hematuria Assessment & Plan: WIll finish 7d of merrem. 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 Code(s): I63.9 - CEREBRAL INFARCTION, UNSPECIFIED (5) Dyslipidemia Current Visit: Yes Status: Chronic Code(s): E78.5 - HYPERLIPIDEMIA, UNSPECIFIED (6) Urinary retention Current Visit: Yes Status: Chronic Code(s): R33.9 - RETENTION OF URINE, UNSPECIFIED (7) Atrial fibrillation Current Visit: Yes Status: Chronic Qualifiers: Atrial fibrillation type: unspecified chronic Qualified Code(s): I48.20 - Chronic atrial fibrillation, unspecified; I48.2 - Chronic atrial fibrillation Code(s): I48.91 - UNSPECIFIED ATRIAL FIBRILLATION (8) Hypertension Current Visit: Yes Status: Chronic Qualifiers: Hypertension type: essential hypertension Code(s): I10 - ESSENTIAL (PRIMARY) HYPERTENSION (9) Diabetes mellitus type 2, uncomplicated Current Visit: No Status: Chronic Qualifiers: Diabetes mellitus ferry terminal agent insulin use: without ferry terminal agent use Qualified Code(s): E11.9 - Type 2 diabetes mellitus without complications Code(s): E11.9 - TYPE 2 DIABETES MELLITUS WITHOUT COMPLICATIONS (10) Seizure Current Visit: No Status: Chronic Code(s): R56.9 - UNSPECIFIED CONVULSIONS
--- NOTE | 2019-11-07 09:05 | PCM.DS ---
Discharge Summary Date of Admission: 11/04/19 09:00 Admitting Physician: ELINOR DOBBS Primary Care Provider: [place] Allergies Allergies No Known Drug Allergies Allergy (Verified 09/27/19 12:11) Hospital Summary - Hospital Course Hospital Course: Pt is 89 yo male pt of mine from [facility] who was admitted from [place] through ER with delerium and UTI. He had been at [facility] with CVA, found to have UTI, was tx at [place] with po antibiotics but started hallucinating. Here he has been on IV merrem (day #4 today) and has steadily improved. Today and yesterday, no hallucinations. Pt is AAO x 3. tolerating po well and afebrile. Family and pt agree with swing bed; will stay for at least 3 more days of IV meropenem. If more rehab needed on discharge, family is interested in [facility]. - Vitals & Intake/Output Vital Signs: Vital Signs Temperature 97.7 F 11/07/19 07:34 Pulse Rate 74 11/07/19 07:34 Respiratory Rate 20 11/07/19 07:34 Blood Pressure 116/68 11/07/19 07:34 O2 Sat by Pulse Oximetry 95 11/07/19 07:34 Intake & Output: Intake & Output 11/04/19 11/05/19 11/06/19 11/07/19 11:59 11:59 11:59 11:59 Intake Total 013 516 3928 860 Output Total 650 1000 1250 775 Balance 20 -28 2 85 Weight 86.5 kg 86.8 kg 87 kg 86.9 kg - Lab Result Diagrams: 11/06/19 09:04 11/06/19 09:04 Lab Results-Last 24 Hrs: Lab Results-Last 24 Hours 11/06/19 11/06/19 Range/Units 09:04 09:04 WBC 8.2 (4.0-10.5) K/mm3 RBC 3.80 L (4.1-5.6) M/mm3 Hgb 12.4 L (12.5-18.0) gm/dl Hct 38.4 L (42-50) % MCV 101.1 H (78-100) fl MCH 32.6 H (26-32) pg MCHC 32.3 (32-36) g/dl RDW 13.8 (11.5-14.0) % Plt Count 210 (150-450) K/mm3 MPV 9.6 (7.5-11.0) fl Sodium 140 (137-145) mmol/L Potassium 4.1 (3.5-5.1) mmol/L Chloride 103 (98-107) mmol/L Carbon Dioxide 31 H (22-30) mmol/L Anion Gap 9.9 (5-15) MEQ/L BUN 15 (9-20) mg/dL Creatinine 0.55 L (0.66-1.25) mg/dL Estimated GFR > 60.0 ML/MIN Glucose 181 H (74-106) mg/dL Calcium 8.2 L (8.4-10.2) mg/dL Micro Results-Entire Visit: Microbiology 11/03/19 16:00 Urine Culture - Final Urine, Indwelling Catheter NO GROWTH 11/03/19 16:10 Blood Culture - Preliminary Blood NO GROWTH TO DATE 11/03/19 16:10 Blood Culture - Preliminary Blood NO GROWTH TO DATE - Procedures and Test Procedures and Tests throughout Hospitalization: Therapy Orders & Screens 11/03/19 16:14 OT Screen per Nursing Assess ONCE Comment: Protocol Order Physician Instructions: Greater than 3 points order OT Admission Screening Reason For Exam: Triggered on Admission Diagnosis: Delirium Open Wound/Cellutlitis/Pressure Ulcers: No Acute Fx/ORIF/Change in wt bearing status: No Severe MUSCULOSKELETAL pain: No ADL Dysfunction: Yes Acute CVA w/Hemiparesis/Hemiplegia: No Decreased Functional Mobility/Strength: Yes Sprain/Strain: No Acute Post-op Mobility Dysfunction: No Total Points: 4 PT Screen per Nursing Assess ONCE Comment: Protocol Order Physician Instructions: Greater than 3 points order PT Admission Screenin Reason For Exam: Triggered on Admission Diagnosis: Delirium Open Wound/Cellutlitis/Pressure Ulcers: No Acute Fx/ORIF/Change in wt bearing status: No Severe MUSCULOSKELETAL pain: No ADL Dysfunction: Yes Acute CVA w/Hemiparesis/Hemiplegia: No Decreased Functional Mobility/Strength: Yes Sprain/Strain: No Acute Post-op Mobility Dysfunction: No Total Points: 4 Discharge Exam General Appearance: no apparent distress, alert Neurologic Exam: oriented x 3, cooperative Eye Exam: eyes nml inspection Ears, Nose, Throat Exam: moist mucous membranes Neck Exam: normal inspection Respiratory Exam: normal breath sounds, lungs clear, No crackles/rales, No rhonchi, No wheezing Cardiovascular Exam: regular rate/rhythm, normal heart sounds, No murmur Gastrointestinal/Abdomen Exam: soft, normal bowel sounds, No tenderness, No distention, No mass, No guarding, No rebound Back Exam: normal inspection, No rash Extremity Exam: No pedal edema, No swelling Skin Exam: normal color, warm, dry, No rash Final Diagnosis/Problem List - Final Discharge Diagnosis/Problem (1) Delirium Current Visit: Yes Status: Resolved Code(s): R41.0 - DISORIENTATION, UNSPECIFIED (2) UTI (urinary tract infection) Current Visit: Yes Status: Acute Assessment & Plan: Needs 3 more days of IV merrem (day #4 today). Code(s): N39.0 - URINARY TRACT INFECTION, SITE NOT SPECIFIED (3) Muscular deconditioning Current Visit: No Status: Chronic Assessment & Plan: start swing bed today. Code(s): R29.898 - OTH SYMPTOMS AND SIGNS INVOLVING THE MUSCULOSKELETAL SYSTEM (4) CVA (cerebral vascular accident) Current Visit: Yes Status: Resolved Code(s): I63.9 - CEREBRAL INFARCTION, UNSPECIFIED (5) Dyslipidemia Current Visit: Yes Status: Chronic Code(s): E78.5 - HYPERLIPIDEMIA, UNSPECIFIED (6) Urinary retention Current Visit: Yes Status: Chronic Code(s): R33.9 - RETENTION OF URINE, UNSPECIFIED (7) Atrial fibrillation Current Visit: Yes Status: Chronic Code(s): I48.91 - UNSPECIFIED ATRIAL FIBRILLATION (8) Hypertension Current Visit: Yes Status: Chronic Code(s): I10 - ESSENTIAL (PRIMARY) HYPERTENSION (9) Diabetes mellitus type 2, uncomplicated Current Visit: No Status: Chronic Code(s): E11.9 - TYPE 2 DIABETES MELLITUS WITHOUT COMPLICATIONS (10) Seizure Current Visit: No Status: Chronic Code(s): R56.9 - UNSPECIFIED CONVULSIONS - Discharge Disposition: Swing Bed @ [facility] Condition: Stable Prescriptions: No Action Apixaban [Eliquis 5 mg Tablet] 5 mg PO BID #60 tablet Finasteride 5 mg [Proscar 5 MG] 5 mg PO DAILY Diltiazem HCl [Diltiazem 24Hr ER] 240 mg PO HS lisinopriL [Zestril] 2.5 mg PO DAILY Fluoxetine HCl 20 mg [Prozac 20 MG] 20 mg PO DAILY Levofloxacin [Levaquin] 500 mg PO DAILY Metoprolol Succinate 50 mg [Toprol Xl 50 MG] 50 mg PO HS Cefdinir 300 mg PO HS Atorvastatin Calcium 80 mg PO HS Aspirin 81 mg PO DAILY Sodium Chloride [Codi-128] 15 ml OP HS Prednisolone Acetate [Pred Forte] 1 ml OP QID levETIRAcetam [Levetiracetam] 250 mg PO BID Metformin HCl 850 mg [Glucophage 850 MG] 850 mg PO BID Quetiapine Fumarate 25 mg [Seroquel 25 MG] 25 mg PO HS Follow up with: ANGELITA GARCIA [Primary Care Provider] - 1 Week ISABEL VACA [Family Provider] - 1 Week
[2019-11-07] MEDS: ECOTRIN 81 MG PO SCH (09:40)
[2019-11-07] MEDS: Keppra 250 MG PO SCH (09:40)
[2019-11-07] MEDS: Zestril 5 MG PO SCH (09:41)
[2019-11-07] MEDS: ELIQUIS 2.5 MG TABLET PO SCH (09:41)
[2019-11-07] MEDS: Proscar 5 MG PO SCH (09:42)
[2019-11-07] MEDS: Prozac 20 MG PO SCH (09:42)
[2019-11-07] MEDS: PRED-FORTE 1% OPHTHALMIC OP SCH ×2 (09:43→15:24)
[2019-11-07 12:36] VITALS: BP 119/64; PULSE 85; O2SAT 98
== END 2019-11-07 15:30 | disposition swing bed (61) | DRG 947 ==
LOC: ED 12:46 → MED SURG 15:56 → OBSVTOIN 11-04 09:00
PROVIDERS: ADMIT Internal Medicine; ATTEND Family Medicine
DX: R41.0 Disorientation, unspecified (principal); I63.9 Cerebral infarction, unspecified; N39.0 Urinary tract infection, site not specified; R44.3 Hallucinations, unspecified; I10 Essential (primary) hypertension; E78.00 Pure hypercholesterolemia, unspecified; R29.898 Other symptoms and signs involving the musculoskeletal system; E78.5 Hyperlipidemia, unspecified; R33.9 Retention of urine, unspecified; I48.91 Unspecified atrial fibrillation; E11.9 Type 2 diabetes mellitus without complications; E56.9 Vitamin deficiency, unspecified; R56.9 Unspecified convulsions; Z79.01 Long term (current) use of anticoagulants; Z79.899 Other long term (current) drug therapy; I25.2 Old myocardial infarction; N40.2 Nodular prostate without lower urinary tract symptoms
CPT/HCPCS: 36415; 51702; 70450; 71046; 80048; 80076; 80177; 81001; 82140; 84484; 85025; 85027; 87040; 87086; 93005; 96360; 99285; G0378; A9270-GY

== ENCOUNTER 2019-11-07 13:24 | Inpatient (IN) | payer MEDICARE, BC ==
[2019-11-07] MEDS ORDERED: Aplisol ID ONE (15:52)
[2019-11-07] MEDS ORDERED: MEDICATION INTERVENTION MC SCH (15:52)
[2019-11-07] MEDS: Merrem 1 GM 1 G in Sodium Chloride 100ML MINI-BAG PLUS 100 ML IV SCH (18:30)
[2019-11-07] MEDS: PRED-FORTE 1% OPHTHALMIC OP SCH (18:31)
[2019-11-08] MEDS: Zestril 5 MG PO SCH (09:17)
[2019-11-08] MEDS: ELIQUIS 2.5 MG TABLET PO SCH ×3 (09:17→21:43)
[2019-11-08] MEDS: Keppra 250 MG PO SCH ×3 (09:17→21:43)
[2019-11-08] MEDS: ECOTRIN 81 MG PO SCH (09:17)
[2019-11-08] MEDS: Prozac 20 MG PO SCH (09:18)
[2019-11-08] MEDS: Proscar 5 MG PO SCH (09:18)
[2019-11-08] MEDS ORDERED: Aplisol ID SCH (10:00)
[2019-11-08] MEDS: Cardizem CD 120 MG PO SCH ×2 (10:32→21:42)
[2019-11-08] MEDS: Seroquel 25 MG PO SCH ×2 (10:32→21:43)
[2019-11-08] MEDS: PRED-FORTE 1% OPHTHALMIC OP SCH ×5 (10:32→23:27)
[2019-11-08] MEDS: Merrem 1 GM 1 G in Sodium Chloride 100ML MINI-BAG PLUS 100 ML IV SCH ×2 (10:33→20:10)
[2019-11-08] MEDS: Toprol Xl 50 MG PO SCH ×2 (10:33→21:44)
[2019-11-08] MEDS: ZOCOR 20MG PO SCH ×2 (10:33→21:44)
[2019-11-08] MEDS: TYLENOL 325 MG PO PRN ×2 (12:21→21:50)
[2019-11-08 14:07] LABS: Absolute Neutrophil Ct (ANC) 7.18 (1.4-6.9); BASOPHIL % 0.2 % (0.0-0.4); Basophil (Absolute #) 0.02 (0-0.4); Eosinophil % 1.5 % (0.00-5.0); Eosinophil (Absolute #) 0.14 (0-0.5); Hematocrit 38.1 % (42-50); Hemoglobin 12.3 gm/dl (12.5-18.0); Lymphocyte (Absolute #) 1.15 (1.0-4.6); Lymphocytes % 12.2 % (24.0-44.0); Mean Cell Volume 101.3 fl (78-100); Mean Corpuscular Hemoglobin 32.7 pg (26-32); Mean Corpuscular Hgb Concent. 32.3 g/dl (32-36); Mean Platelet Volume 9.6 fl (7.5-11.0); Monocyte (Absolute #) 0.94 (0.0-1.3); Neutrophil % 76.1 % (36.0-66.0); Platelet Count 212 K/mm3 (150-450); Red Blood Count 3.76 M/mm3 (4.1-5.6); Red Cell Distribution Width 13.8 % (11.5-14.0); White Blood Count 9.4 K/mm3 (4.0-10.5)
[2019-11-08 14:26] LABS: ALBUMIN 3.3 g/dL (3.5-5.0); ALKALINE PHOSPHATASE 95 U/L (38-126); ANION GAP 8.9 MEQ/L (5-15); BLOOD UREA NITROGEN 17 mg/dL (9-20); CHLORIDE 103 mmol/L (98-107); Calcium 8.3 mg/dL (8.4-10.2); Carbon Dioxide 30 mmol/L (22-30); Creatinine 1 0.57 mg/dL (0.66-1.25); Glucose 153 mg/dL (74-106); Potassium 4.2 mmol/L (3.5-5.1); SGOT/AST 85 U/L (17-59); SGPT/ALT 28 U/L (0-50); SODIUM 138 mmol/L (137-145)
[2019-11-08] MEDS ORDERED: Sodium Chloride 0.9% 10 ML FLUSH Syringe IV PRN (15:00)
--- NOTE | 2019-11-08 15:26 | XRAY ---
Indication: Pain. Comparison: None KUB demonstrates nonspecific nonobstructed bowel gas pattern with fecal debris predominantly in the ascending and transverse colon. No focal bowel dilatation, obstruction, or free air. Solid organs are unremarkable. Osseous structures demonstrate osteopenia, mild/moderate multilevel degenerative spondylosis, and old right rib fractures. Lower lumbar spine appear sclerotic and the pelvis also demonstrates sclerotic lesions worrisome for metastasis. Impression: 1. Mild fecal stasis without obstruction. 2. Lumbar and pelvic sclerotic lesions worrisome for metastasis.
--- NOTE | 2019-11-08 15:34 | XRAY ---
Indication: Confusion, hallucinations, and unsteady gait. Recent stroke 17 days ago. Sagittal, coronal, and axial MRI brain was performed without contrast using T1, T2, FLAIR, diffusion, and ADC sequences. Comparison: None Age-appropriate global atrophy, moderate periventricular degenerative micro-ischemia bilaterally, and mild brainstem degenerative micro-ischemia signal. Old right temporal lobe infarct. Right occipital lobe demonstrates cytotoxic edema signal and mild restrictive signal favoring acute to subacute ischemia. Left occipital lobe demonstrates a few punctate restricted signal favoring acute micro-ischemia. No acute intracranial hemorrhage, hydrocephalus, or mass effect. Fourth ventricle is midline. 7/8 cranial nerve complex bilaterally symmetric. Normal flow void signal within the major intracerebral circulation. Normal-appearing craniocervical junction and sella turcica. Impression: 1. Right occipital lobe acute to subacute ischemia. A few punctate left occipital lobe acute micro-ischemia. No acute hemorrhage or mass effect. 2. Old right temporal lobe infarct. 3. Global atrophy and degenerative micro-ischemia.
[2019-11-08] MEDS ORDERED: Sodium Chloride 0.9% 1000 ML 1,000 ML IV STA (17:01)
[2019-11-08] MEDS: Sodium Chloride 0.9% 10 ML FLUSH Syringe IV SCH (20:10)
[2019-11-08] MEDS: Sodium Chloride 0.9% 1000 ML 1,000 ML IV SCH (20:10)
[2019-11-09] MEDS: Merrem 1 GM 1 G in Sodium Chloride 100ML MINI-BAG PLUS 100 ML IV SCH ×2 (06:56→17:22)
[2019-11-09] MEDS: Sodium Chloride 0.9% 10 ML FLUSH Syringe IV SCH ×3 (06:56→20:26)
--- NOTE | 2019-11-09 08:13 | XRAY ---
Indication: Follow-up bony sclerotic lesions. Abdomen pain. Multiple contiguous axial images obtained through the abdomen and pelvis using 80 cc of Isovue-370 contrast and enteric contrast. Comparison: May 07, 2019. Lung bases again demonstrates bibasilar atelectasis/scarring and right lower lobe calcified granuloma. Heart is not enlarged. Stable moderate size hiatal hernia with partial intrathoracic stomach. Contrasted stomach and bowel loops appear nonobstructed. Normal appendix. Again mild scattered colonic fecal debris predominantly in the transverse, descending, and sigmoid colon. No free fluid/air. Stable small bilateral renal cysts, prostatectomy, and tiny calcified splenic granulomas. Urinary bladder is decompressed again with Asif catheter in situ. Remaining liver, gallbladder, pancreas, spleen, adrenal glands, kidneys, and ureters appear unremarkable. 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 No pathologic retroperitoneal lymphadenopathy. Bone windows again demonstrates osteopenia, moderate/advanced multilevel thoracolumbar degenerative spondylosis, and remote L1 superior endplate fracture. Previous right innominate bone and sacral sclerotic lesions have enlarged in the interim. New small T10 sclerotic lesion. Stable sclerotic lesions of the left 8 rib, L2, and left innominate bone. Findings again worrisome for bony metastasis. Impression: 1. Interval worsening bony sclerotic lesions as detailed worrisome for metastasis. Query prostate etiology. 2. Again mild fecal stasis without ejection. 3. Stable hiatal hernia with partial intrathoracic stomach, bilateral renal cysts, Asif catheter in situ, and scattered arteriosclerotic disease with distal aorta and right common iliac artery aneurysms.
[2019-11-09] MEDS: Prozac 20 MG PO SCH (09:13)
[2019-11-09] MEDS: Zestril 5 MG PO SCH (09:13)
[2019-11-09] MEDS: Keppra 250 MG PO SCH ×2 (09:13→20:16)
[2019-11-09] MEDS: ELIQUIS 2.5 MG TABLET PO SCH ×2 (09:13→20:16)
[2019-11-09] MEDS: ECOTRIN 81 MG PO SCH (09:13)
[2019-11-09] MEDS: Proscar 5 MG PO SCH (09:14)
[2019-11-09] MEDS: PRED-FORTE 1% OPHTHALMIC OP SCH ×4 (09:14→20:21)
[2019-11-09] MEDS ORDERED: Geodon 20 MG INJ IM ONE ×2 (20:00→23:22)
[2019-11-09] MEDS ORDERED: Geodon 20 MG INJ IM PRN (20:08)
[2019-11-09] MEDS: Seroquel 25 MG PO SCH (20:14)
[2019-11-09] MEDS: Cardizem CD 120 MG PO SCH (20:16)
[2019-11-09] MEDS: ZOCOR 20MG PO SCH (20:17)
[2019-11-09] MEDS: Toprol Xl 50 MG PO SCH (20:17)
[2019-11-09] MEDS ORDERED: STERILE WATER FOR INJECTION 20 ML 20 ML ONE (23:24)
[2019-11-10] MEDS: TYLENOL 325 MG PO PRN (01:34)
[2019-11-10] MEDS: Merrem 1 GM 1 G in Sodium Chloride 100ML MINI-BAG PLUS 100 ML IV SCH ×2 (05:15→17:26)
[2019-11-10] MEDS: ECOTRIN 81 MG PO SCH (09:22)
[2019-11-10] MEDS: Keppra 250 MG PO SCH ×2 (09:22→22:59)
[2019-11-10] MEDS: ELIQUIS 2.5 MG TABLET PO SCH ×2 (09:22→23:00)
[2019-11-10] MEDS: Proscar 5 MG PO SCH (09:24)
[2019-11-10] MEDS: Prozac 20 MG PO SCH (09:24)
[2019-11-10] MEDS: Zestril 5 MG PO SCH (09:24)
[2019-11-10] MEDS: PRED-FORTE 1% OPHTHALMIC OP SCH ×4 (09:26→23:01)
[2019-11-10] MEDS: Sodium Chloride 0.9% 10 ML FLUSH Syringe IV SCH ×2 (13:16→23:02)
[2019-11-10] MEDS: ZOCOR 20MG PO SCH (22:58)
[2019-11-10] MEDS: Cardizem CD 120 MG PO SCH (22:59)
[2019-11-10] MEDS: Toprol Xl 50 MG PO SCH (23:00)
[2019-11-10] MEDS: Seroquel 25 MG PO SCH (23:00)
[2019-11-11] MEDS: Merrem 1 GM 1 G in Sodium Chloride 100ML MINI-BAG PLUS 100 ML IV SCH (06:05)
[2019-11-11] MEDS: Sodium Chloride 0.9% 10 ML FLUSH Syringe IV SCH ×2 (06:07→22:52)
[2019-11-11] MEDS ORDERED: solu-MEDROL 125 MG ONE (06:49)
[2019-11-11] MEDS: PRED-FORTE 1% OPHTHALMIC OP SCH ×4 (09:04→22:09)
[2019-11-11] MEDS: Keppra 250 MG PO SCH ×2 (09:04→22:08)
[2019-11-11] MEDS: ELIQUIS 2.5 MG TABLET PO SCH ×2 (09:04→22:08)
[2019-11-11] MEDS: ECOTRIN 81 MG PO SCH (09:04)
[2019-11-11] MEDS: Zestril 5 MG PO SCH (09:05)
[2019-11-11] MEDS: Proscar 5 MG PO SCH (09:05)
[2019-11-11] MEDS: Prozac 20 MG PO SCH (09:05)
[2019-11-11] MEDS: TYLENOL 325 MG PO PRN ×2 (11:16→22:08)
[2019-11-11] MEDS: ZOCOR 20MG PO SCH (22:08)
[2019-11-11] MEDS: Toprol Xl 50 MG PO SCH (22:08)
[2019-11-11] MEDS: Cardizem CD 120 MG PO SCH (22:08)
[2019-11-11] MEDS: Seroquel 25 MG PO SCH (22:09)
[2019-11-12] MEDS: Prozac 20 MG PO SCH (11:18)
[2019-11-12] MEDS: Zestril 5 MG PO SCH (11:18)
[2019-11-12] MEDS: Keppra 250 MG PO SCH ×2 (11:18→21:14)
[2019-11-12] MEDS: ECOTRIN 81 MG PO SCH (11:18)
[2019-11-12] MEDS: ELIQUIS 2.5 MG TABLET PO SCH ×2 (11:18→21:15)
[2019-11-12] MEDS: Proscar 5 MG PO SCH (11:19)
[2019-11-12] MEDS: Sodium Chloride 0.9% 10 ML FLUSH Syringe IV SCH (11:21)
[2019-11-12] MEDS: PRED-FORTE 1% OPHTHALMIC OP SCH ×4 (11:21→21:15)
[2019-11-12] MEDS: Seroquel 25 MG PO SCH (21:14)
[2019-11-12] MEDS: TYLENOL 325 MG PO PRN (21:14)
[2019-11-12] MEDS: Toprol Xl 50 MG PO SCH (21:14)
[2019-11-12] MEDS: ZOCOR 20MG PO SCH (21:14)
[2019-11-12] MEDS: Cardizem CD 120 MG PO SCH (21:15)
[2019-11-13] MEDS: ELIQUIS 2.5 MG TABLET PO SCH ×3 (00:28→21:26)
[2019-11-13] MEDS: PRED-FORTE 1% OPHTHALMIC OP SCH ×5 (00:29→21:27)
[2019-11-13] MEDS: Keppra 250 MG PO SCH ×3 (00:29→21:27)
[2019-11-13] MEDS: Seroquel 25 MG PO SCH ×2 (00:30→21:27)
[2019-11-13] MEDS: Cardizem CD 120 MG PO SCH ×2 (00:30→21:26)
[2019-11-13] MEDS: ZOCOR 20MG PO SCH ×2 (00:31→21:28)
[2019-11-13] MEDS: Toprol Xl 50 MG PO SCH ×2 (00:31→21:27)
[2019-11-13 08:34] LABS: Hematocrit 38.5 % (42-50); Hemoglobin 12.7 gm/dl (12.5-18.0); Mean Platelet Volume 8.9 fl (7.5-11.0); Platelet Count 251 K/mm3 (150-450); Red Blood Count 3.85 M/mm3 (4.1-5.6); Red Cell Distribution Width 13.4 % (11.5-14.0); White Blood Count 6.5 K/mm3 (4.0-10.5)
[2019-11-13 08:49] LABS: ALBUMIN 3.5 g/dL (3.5-5.0); ALKALINE PHOSPHATASE 147 U/L (38-126); ANION GAP 9.3 MEQ/L (5-15); BLOOD UREA NITROGEN 13 mg/dL (9-20); CHLORIDE 101 mmol/L (98-107); Calcium 8.5 mg/dL (8.4-10.2); Carbon Dioxide 33 mmol/L (22-30); Creatinine 1 0.55 mg/dL (0.66-1.25); Glucose 128 mg/dL (74-106); Potassium 4.2 mmol/L (3.5-5.1); SGOT/AST 29 U/L (17-59); SGPT/ALT 39 U/L (0-50); SODIUM 139 mmol/L (137-145); Total Protein 6.5 g/dL (6.3-8.2)
[2019-11-13] MEDS: ECOTRIN 81 MG PO SCH (09:54)
[2019-11-13] MEDS: Zestril 5 MG PO SCH (09:55)
[2019-11-13] MEDS: Prozac 20 MG PO SCH (09:55)
[2019-11-13] MEDS: Sodium Chloride 0.9% 10 ML FLUSH Syringe IV SCH ×3 (09:59→16:08)
[2019-11-13] MEDS: Proscar 5 MG PO SCH (10:00)
[2019-11-13] MEDS: Sodium Chloride 0.9% 1000 ML 1,000 ML IV SCH ×5 (10:45→10:49)
[2019-11-13] MEDS: TYLENOL 325 MG PO PRN (21:28)
[2019-11-14] MEDS: Sodium Chloride 0.9% 10 ML FLUSH Syringe IV SCH ×4 (04:32→19:56)
[2019-11-14] MEDS: ELIQUIS 2.5 MG TABLET PO SCH ×2 (09:10→19:54)
[2019-11-14] MEDS: Prozac 20 MG PO SCH (09:10)
[2019-11-14] MEDS: ECOTRIN 81 MG PO SCH (09:10)
[2019-11-14] MEDS: Keppra 250 MG PO SCH ×2 (09:10→19:54)
[2019-11-14] MEDS: Zestril 5 MG PO SCH (09:10)
[2019-11-14] MEDS: Proscar 5 MG PO SCH (09:12)
[2019-11-14] MEDS: PRED-FORTE 1% OPHTHALMIC OP SCH ×4 (09:12→19:55)
[2019-11-14] MEDS: Seroquel 25 MG PO SCH (19:53)
[2019-11-14] MEDS: Cardizem CD 120 MG PO SCH (19:53)
[2019-11-14] MEDS: ZOCOR 20MG PO SCH (19:53)
[2019-11-14] MEDS: Toprol Xl 50 MG PO SCH (19:54)
[2019-11-15 07:52] VITALS: BP 127/63; PULSE 53; O2SAT 94
--- NOTE | 2019-11-15 08:12 | PCM.NOTE ---
Date and Time: 11/15/19805 late entry for 11/12/19 0800 Subjective Assessment: Pt feeling good. AAO X3. Feels like he's getting his strength back. kanika po. - Review of Systems Constitutional: No Fever Abdominal/Gastrointestinal: No Vomiting Objective Exam General Appearance: no apparent distress, alert Neurologic Exam: oriented x 3, cooperative Skin Exam: normal color, warm, dry, No rash Eye Exam: eyes nml inspection Respiratory Exam: normal breath sounds, lungs clear, No crackles/rales, No rhonchi, No wheezing Cardiovascular Exam: regular rate/rhythm, normal heart sounds, No murmur Extremity Exam: No pedal edema, No swelling OBJECTIVE DATA Vital Signs: Vital Signs - 24 hr Temp Pulse Resp BP Pulse Ox 11/15/19 07:00 97.8 F 53 L 16 127/63 94 L 11/14/19 19:23 97.9 F 52 L 18 132/69 97 Pain Assessment - Last Documented Pain Intensity 0 Pain Scale Used 0-10 Pain Scale Intake and Output: Intake & Output 11/12/19 11/13/19 11/14/19 11/15/19 11:59 11:59 11:59 11:59 Intake Total 840 580 580 660 Output Total 925 1075 1350 550 Balance -85 -495 -770 110 Weight 86.5 kg 86.1 kg Multi-Disciplinary Progress Notes: Multi-Disciplinary Progress Notes 11/14/19 16:53 Occupational Therapy Note by Coleen Henry resting in supine on bed with bed alarm on upon OTR arrival. He was agreeable to skilled OT treatment session today. Segundo participated in grooming/ hygiene in standing at sink with FWW for support followed by functional mobility rehab room to participate in BUE strengthening, coordination, and body awareness exercises 2x10 reps with red theraband. OTR educated Segundo on compensatory strategies including head turn and visual scanning to increase left -side awareness and safety awareness during fucntional mobility and self-care. Segundo verbalized understanding and req'd mod cueing for carryover during tasks. He would benefit from additional OT services for further training and strengthening. Segundo with PT at end of OT session. Initialized on 11/14/19 16:53 - END OF NOTE 11/14/19 09:30 (created 11/14/19 12:31) Case Management Note by Eulalia Arreaga SPOKE WITH DAUGHTER ABOUT TRANSITION TO [facility] FOR EXTENDED REHAB ON DISCHARGE. DAUGHTER REPORTS THAT THEY HAVE MOVED PERSONAL BELONGINGS TO ROOM AT [facility] AND THEY ARE PLANNING TO TRANSITION TO [facility] TOMORROW, , AFTER MORNING P.T. FAMILY REPORTS THAT THEY WOULD LIKE TO HAVE TRANSPORTATION SERVICES TAKE HIM TO [facility], THIS WILL ASSIST IN SMOOTH TRANSITION FOR PT/FAMILY. DENIES ADDNL NEEDS AT PRESENT TIME. DAUGHTER REPORTS THAT SHE IS FLYING OUT TO [place] THIS AFTERNOON, BUT THAT HER BROTHER REBEKAH WILL MEET PT AT [facility] TOMORROW WHEN HE ARRIVES. Initialized on 11/14/19 12:31 - END OF NOTE Assessment/Plan (1) Physical deconditioning Current Visit: No Status: Acute Assessment & Plan: He is doing well with PT, may be ready to d/c home by end of the week. Code(s): R53.81 - OTHER MALAISE (2) UTI (urinary tract infection) Current Visit: No Status: Resolved Qualifiers: Urinary tract infection type: acute cystitis Assessment & Plan: Will complete 7d of IV merrem. Code(s): N39.0 - URINARY TRACT INFECTION, SITE NOT SPECIFIED (3) Atrial fibrillation Current Visit: No Status: Chronic Qualifiers: Atrial fibrillation type: paroxysmal Qualified Code(s): I48.0 - Paroxysmal atrial fibrillation Code(s): I48.91 - UNSPECIFIED ATRIAL FIBRILLATION (4) COPD (chronic obstructive pulmonary disease) Current Visit: No Status: Chronic Qualifiers: (5) Diabetes mellitus type 2, uncomplicated Current Visit: No Status: Chronic Qualifiers: Diabetes mellitus oysterman insulin use: without intermediate use Code(s): E11.9 - TYPE 2 DIABETES MELLITUS WITHOUT COMPLICATIONS (6) Hypertension Current Visit: No Status: Chronic Qualifiers: Hypertension type: essential hypertension Code(s): I10 - ESSENTIAL (PRIMARY) HYPERTENSION
--- NOTE | 2019-11-15 09:16 | PCM.DS ---
Discharge Summary Date of Admission: 11/07/19 15:30 Admitting Physician: ISABEL VACA Primary Care Provider: JAY Allergies Allergies No Known Drug Allergies Allergy (Verified 09/27/19 12:11) Hospital Summary - Hospital Course Hospital Course: Pt was admitted through ER with weakness and acutely found to have UTI. Treated with 7d of IV meropenem total; after the first 3d was discharged from acute bed and put in swing bed. Has received therapy and has been doing well. Would like to discharge to home at some point but is agreeable to going to [facility] today for continued rehab. Will f/u with me likely in early December if he is discharged from [facility] at that point. I did speak with pt's daughter today. - Vitals & Intake/Output Vital Signs: Vital Signs Temperature 97.8 F 11/15/19 07:00 Pulse Rate 53 L 11/15/19 07:00 Respiratory Rate 16 11/15/19 07:00 Blood Pressure 127/63 11/15/19 07:00 O2 Sat by Pulse Oximetry 94 L 11/15/19 07:00 Intake & Output: Intake & Output 11/12/19 11/13/19 11/14/19 11/15/19 11:59 11:59 11:59 11:59 Intake Total 840 580 580 660 Output Total 925 1075 1350 550 Balance -85 -495 -770 110 Weight 86.5 kg 86.1 kg - Lab Result Diagrams: 11/13/19 08:31 11/13/19 08:31 - Procedures and Test Procedures and Tests throughout Hospitalization: Therapy Orders & Screens 11/07/19 15:52 OT Eval and Treat ( Order) ROUTINE Comment: Consulting Provider: ISABEL VACA Physician Instructions: Reason For Exam: DECONDITIONING R/T UTI, DELERIUM Evaluate: Yes Treat: Yes Reason for Evaluation: DECONDITIONING R/T UTI AND DELERIUM Diagnosis: DECONDITIONING R/T UTI AND DELERIUM OT Screen per Nursing Assess ONCE Comment: Protocol Order Physician Instructions: Greater than 3 points order OT Admission Screening Reason For Exam: Triggered on Admission Diagnosis: Delirium Open Wound/Cellutlitis/Pressure Ulcers: No Acute Fx/ORIF/Change in wt bearing status: No Severe MUSCULOSKELETAL pain: No ADL Dysfunction: Yes Acute CVA w/Hemiparesis/Hemiplegia: No Decreased Functional Mobility/Strength: Yes Sprain/Strain: No Acute Post-op Mobility Dysfunction: No Total Points: 4 PT Eval & Treat (MD Order) ROUTINE Reason for Eval:: DECONDITIONING R/T UTI AND DELERIUM Diagnosis: DECONDITIONING R/T UTI AND DELERIUM 11/08/19 14:25 PT Clarification Order ROUTINE Comment: Physician Instructions: Reason For Exam: PT Clarification: P.T. 5X/WK BID GREYSON FOR THER EX, FUNC ACTIVITIES, GAIT AND BALANCE TRAINING, EXERTION TOLERANCE TRAINING TO MAXIMIZE POTENTIAL FOR SAFEST D/C DESTINATION. Discharge Exam General Appearance: no apparent distress, alert Neurologic Exam: oriented x 3, cooperative Ears, Nose, Throat Exam: moist mucous membranes Respiratory Exam: normal breath sounds, lungs clear, No crackles/rales, No rhonchi, No wheezing Cardiovascular Exam: regular rate/rhythm, normal heart sounds, No murmur Gastrointestinal/Abdomen Exam: soft, normal bowel sounds, No tenderness, No distention, No mass, No guarding, No rebound Extremity Exam: normal inspection, No pedal edema, No swelling Skin Exam: normal color, warm, dry, No rash Final Diagnosis/Problem List - Final Discharge Diagnosis/Problem (1) Physical deconditioning Current Visit: No Status: Acute Code(s): R53.81 - OTHER MALAISE (2) UTI (urinary tract infection) Current Visit: No Status: Resolved Code(s): N39.0 - URINARY TRACT INFECTION , SITE NOT SPECIFIED (3) Atrial fibrillation Current Visit: No Status: Chronic Code(s): I48.91 - UNSPECIFIED ATRIAL FIBRILLATION (4) COPD (chronic obstructive pulmonary disease) Current Visit: No Status: Chronic (5) Diabetes mellitus type 2, uncomplicated Current Visit: No Status: Chronic Code(s): E11.9 - TYPE 2 DIABETES MELLITUS WITHOUT COMPLICATIONS (6) Hypertension Current Visit: No Status: Chronic Code(s): I10 - ESSENTIAL (PRIMARY) HYPERTENSION - Discharge Disposition: DC TO ANY "OTHER" DETENTION Condition: Stable Prescriptions: Continue Apixaban [Eliquis 5 mg Tablet] 5 mg PO BID #60 tablet Finasteride 5 mg [Proscar 5 MG] 5 mg PO DAILY Diltiazem HCl [Diltiazem 24Hr ER] 240 mg PO HS lisinopriL [Zestril] 2.5 mg PO DAILY Fluoxetine HCl 20 mg [Prozac 20 MG] 20 mg PO DAILY Metoprolol Succinate 50 mg [Toprol Xl 50 MG] 50 mg PO HS Atorvastatin Calcium 80 mg PO HS Aspirin 81 mg PO DAILY Sodium Chloride [Codi-128] 15 ml OP HS Prednisolone Acetate [Pred Forte] 1 ml OP QID levETIRAcetam [Levetiracetam] 250 mg PO BID Metformin HCl 850 mg [Glucophage 850 MG] 850 mg PO BID Quetiapine Fumarate 25 mg [Seroquel 25 MG] 25 mg PO HS Discontinued Levofloxacin [Levaquin] 500 mg PO DAILY Cefdinir 300 mg PO HS Follow up with: ANGELITA GARCIA [Primary Care Provider] - 1 Week ISABEL VACA [Family Provider] - 1 Week
[2019-11-15] MEDS: ELIQUIS 2.5 MG TABLET PO SCH (09:32)
[2019-11-15] MEDS: Keppra 250 MG PO SCH (09:32)
[2019-11-15] MEDS: Zestril 5 MG PO SCH (09:32)
[2019-11-15] MEDS: Prozac 20 MG PO SCH (09:32)
[2019-11-15] MEDS: PRED-FORTE 1% OPHTHALMIC OP SCH (09:32)
[2019-11-15] MEDS: Proscar 5 MG PO SCH (09:33)
[2019-11-15] MEDS: ECOTRIN 81 MG PO SCH (09:33)
[2019-11-15] MEDS: Sodium Chloride 0.9% 10 ML FLUSH Syringe IV SCH (09:33)
[2019-11-19] MEDS ORDERED: Aplisol ID SCH (10:00)
== END 2019-11-15 12:40 | DRG 948 ==
LOC: MED SURG 15:30
PROVIDERS: ADMIT Family Medicine; ATTEND Family Medicine
DX: R53.81 Other malaise (principal); N39.0 Urinary tract infection, site not specified; R53.1 Weakness; I48.91 Unspecified atrial fibrillation; J44.9 Chronic obstructive pulmonary disease, unspecified; I10 Essential (primary) hypertension; Z79.01 Long term (current) use of anticoagulants; Z79.899 Other long term (current) drug therapy; N40.2 Nodular prostate without lower urinary tract symptoms; E78.00 Pure hypercholesterolemia, unspecified; Z86.73 Personal history of transient ischemic attack (TIA), and cerebral infarction without residual deficits; E78.5 Hyperlipidemia, unspecified; R33.9 Retention of urine, unspecified; R41.0 Disorientation, unspecified; E11.9 Type 2 diabetes mellitus without complications; R56.9 Unspecified convulsions
CPT/HCPCS: 36415; 70551; 74018; 74177; 80053; 85025; 85027; J2930; J3486; 97110-GP; A9270-GY